=== PATIENT | male | born 1935 | race African-American/Black ===

== ENCOUNTER 2017-03-27 06:11 | Emergency (ER) | payer MEDICARE ==
[~2017-03-27] VITALS: Ht 190.5 cm; Wt 51.0 kg
[~2017-03-27 06:11] MED LIST: FS300; LEVO137T2; LISI-604; SIMVASTATIN
[2017-03-27] MEDS ORDERED: SODIUM CHLORIDE 0.9% 1,000 ML IV ONE (06:37)
[2017-03-27 06:59] LABS: BASOPHILS % 0.3 % (0.0-2.0); HEMATOCRIT. 33.5 % (42.0-52.0); HEMOGLOBIN. 11.5 g/dL (14.0-18.0); LYMPHOCYTES % 14.3 % (20.0-50.0); MEAN CORPUSCULAR HEMOGLOBIN 30.1 pg (28.0-32.0); MEAN CORPUSCULAR HGB CONC 34.2 g/dL (31.0-37.0); MEAN CORPUSCULAR VOLUME 87.9 fL (80.0-94.0); MEAN PLATELET VOLUME 7.1 fl (7.4-10.4); MONOCYTES % 9.9 % (2.0-8.0); NEUTROPHILS % 75.5 % (40.0-76.0); PLATELET 165 x1000/uL (130-400); RED BLOOD CELL COUNT 3.81 mill/uL (4.7-6.1); RED CELL DISTRIBUTION WIDTH 13.2 % (11.6-14.6); WHITE BLOOD COUNT 2.4 x1000/uL (4.5-11.0)
[2017-03-27 07:06] LABS: PROTHROMBIN TIME 10.7 sec
[2017-03-27] MEDS ORDERED: INSU3INS6 SUBCUT (07:07)
[2017-03-27] MEDS ORDERED: TAMS0.4C31 PO (07:09)
[2017-03-27] MEDS ORDERED: ASPI-1035 PO (07:09)
[2017-03-27 07:16] LABS: ALANINE AMINOTRANSFERASE 25 IU/L (13-61); ALBUMIN 3.9 g/dL (3.4-5.0); ANION GAP 18; CALCIUM 8.9 mg/dL (8.5-10.1); CARBON DIOXIDE 25 mEq/L (21-32); CHLORIDE 90 mEq/L (98-107); ETHANOL BLOOD < 10 mg/dL; INDEX HEMOLYSI 1 (1-3); INDEX ICTERIC 1 (1-4); INDEX LIPEMIC 1 (1-3); NT PRO B-TYPE NATRIURETIC PEP 123 pg/mL (5-125); T4 FREE 1.28 ng/dL (0.76-1.46); TROPONIN I < 0.02 ng/mL (0.00-0.04); UREA NITROGEN BLOOD 33 mg/dL (7-21); eGFR 39 mL/min (>60)
[2017-03-27 11:31] VITALS: BP 140/70
== END 2017-03-27 11:36 | disposition home or self-care (01) ==
LOC: ER 06:12
DX: R05 Cough (principal); R09.81 Nasal congestion; R06.02 Shortness of breath; R42 Dizziness and giddiness; R11.2 Nausea with vomiting, unspecified; R53.1 Weakness; I10 Essential (primary) hypertension; E11.9 Type 2 diabetes mellitus without complications; D64.9 Anemia, unspecified; F12.10 Cannabis abuse, uncomplicated; Z90.49 Acquired absence of other specified parts of digestive tract; Z98.890 Other specified postprocedural states; Z79.82 Long term (current) use of aspirin; Z79.4 Long term (current) use of insulin
CPT/HCPCS: 36415; 71010; 72050; 80053; 83880; 84439; 84443; 84484; 85025; 85610; 93005; 96360; 96361; 99285; G0482; J7030

== ENCOUNTER 2017-12-17 09:28 | Inpatient (IN) | payer MEDICARE, OTHER ==
[~2017-12-17] VITALS: Ht 190.5 cm; Wt 64.0 kg
[~2017-12-17 09:28] MED LIST changes: +ASPI-1159 PO; +FERR325T23; -FS300; +INSU3INS6 SUBCUT; +TAMS0.4C31 PO
[2017-12-17 11:20] LABS: BASOPHILS % 0.3 % (0.0-2.0); EOSINOPHILS % 0.1 % (0.0-5.0); HEMOGLOBIN. 12.2 g/dL (14.0-18.0); LYMPHOCYTES % 13.6 % (20.0-50.0); MEAN CORPUSCULAR HEMOGLOBIN 30.8 pg (28.0-32.0); MEAN CORPUSCULAR VOLUME 90.8 fL (80.0-94.0); MEAN PLATELET VOLUME 6.4 fl (7.4-10.4); PLATELET 200 x1000/uL (130-400); RED BLOOD CELL COUNT 3.97 mill/uL (4.7-6.1); RED CELL DISTRIBUTION WIDTH 13.2 % (11.6-14.6)
[2017-12-17 11:37] LABS: CARBON DIOXIDE 30 mEq/L (21-32); CHLORIDE 86 mEq/L (98-107); TROPONIN I < 0.02 ng/mL (0.00-0.04)
[2017-12-17 11:45] LABS: PROTHROMBIN TIME 10.8 sec (9.4-11.6)
[2017-12-17] MEDS ORDERED: ACETAMINOPHEN 325MG TABLET PO ONE (11:45)
[2017-12-17] MEDS ORDERED: METHYLPREDNISOLONE SOD SUCC 125 MG/2 ML VIAL IV STA (11:59)
[2017-12-17] MEDS ORDERED: ALBUTEROL (0.083%) 2.5MG/3ML NEB HHN STA (11:59)
[2017-12-17] MEDS ORDERED: DEXTROSE 50% WATER 50ML SYRINGE IV PRN (16:00)
[2017-12-17] MEDS ORDERED: IPRATROPIUM/ALBUTEROL 0.5-3(2.5)MG/3ML NEB INH PRN (16:00)
[2017-12-17] MEDS ORDERED: CLONIDINE 0.1MG TABLET PO PRN (16:00)
[2017-12-17] MEDS ORDERED: ONDANSETRON HCL 4MG/2ML VIAL IV PRN (16:00)
[2017-12-17] MEDS ORDERED: GUAIFENESIN 200MG/10ML SUGAR FREE UDC PO PRN (16:00)
[2017-12-17] MEDS ORDERED: DIPHENHYDRAMINE 50MG/ML VIAL IV PRN (16:00)
[2017-12-17] MEDS ORDERED: ACETAMINOPHEN 325MG TABLET PO PRN (16:00)
[2017-12-17 17:00] VITALS: BP 143/62
[2017-12-17 17:20] VITALS: BP 158/81
[2017-12-17] MEDS: BLOOD SUGAR DIAGNOSTIC STRIP TEST SCH ×2 (17:20→21:14)
[2017-12-17 17:32] LABS: HEPATITIS B SURFACE ANTIGEN NEGATIVE
[2017-12-17 18:00] LABS: HEPATITIS B CORE AB IGM NEGATIVE
[2017-12-17] MEDS ORDERED: METHYLPREDNISOLONE SOD SUCC 40 MG/ML VIAL IV SCH (18:00)
[2017-12-17 18:02] LABS: HEPATITIS A AB IGM NEGATIVE (NEGATIVE)
[2017-12-17] MEDS: INSULIN LISPRO 100 UNITS/ML SUBCUT SCH ×2 (18:46→21:14)
[2017-12-17 20:00] VITALS: BP 126/63
[2017-12-17 20:12] LABS: T4 FREE 0.4 ng/dL (0.76-1.46)
[2017-12-17] MEDS: AZITHROMYCIN 500 MG TABLET PO SCH (20:17)
[2017-12-17] MEDS: SODIUM CHLORIDE 0.9% 1,000 ML IV SCH (20:17)
[2017-12-17] MEDS: OSELTAMIVIR 30MG CAPSULE PO SCH (20:18)
[2017-12-18] VITALS: BP 135/63
[2017-12-18] MEDS: HYDROCODONE/ACETAMINOPHEN 5/325MG TABLET PO PRN ×3 (01:55→22:08)
[2017-12-18] MEDS: IPRATROPIUM/ALBUTEROL 0.5-3(2.5)MG/3ML NEB INH SCH ×4 (02:20→20:42)
[2017-12-18 04:00] VITALS: BP 112/62
[2017-12-18] MEDS: SODIUM CHLORIDE 0.9% 1,000 ML IV SCH ×2 (06:19→19:40)
[2017-12-18] MEDS: BLOOD SUGAR DIAGNOSTIC STRIP TEST SCH ×4 (06:24→21:20)
[2017-12-18 06:41] LABS: HEMATOCRIT. 27.9 % (42.0-52.0); MEAN CORPUSCULAR HEMOGLOBIN 32.4 pg (28.0-32.0); MEAN CORPUSCULAR VOLUME 90.6 fL (80.0-94.0); MEAN PLATELET VOLUME 6.4 fl (7.4-10.4); PLATELET 147 x1000/uL (130-400); RED BLOOD CELL COUNT 3.09 mill/uL (4.7-6.1); RED CELL DISTRIBUTION WIDTH 12.9 % (11.6-14.6)
[2017-12-18 06:53] LABS: CHLORIDE 93 mEq/L (98-107)
[2017-12-18 07:07] LABS: CARBON DIOXIDE 26 mEq/L (21-32); HDL CHOLESTEROL 75 mg/dL (40-59); LDL CHOLESTEROL 66 mg/dL (5-100); TROPONIN I < 0.02 ng/mL (0.00-0.04)
[2017-12-18 08:00] VITALS: BP 101/62
[2017-12-18 08:10] LABS: PLATELET ESTIMATE NORMAL
[2017-12-18] MEDS: AZITHROMYCIN 500 MG TABLET PO SCH (09:47)
[2017-12-18] MEDS: OSELTAMIVIR 30MG CAPSULE PO SCH ×2 (09:49→21:20)
[2017-12-18] MEDS: INSULIN LISPRO 100 UNITS/ML SUBCUT SCH ×4 (09:54→21:20)
[2017-12-18 12:00] VITALS: BP 155/70
[2017-12-18] MEDS ORDERED: LEVOTHYROXINE SODIUM 137MCG TABLET PO SCH (12:45)
[2017-12-18 16:00] VITALS: BP 155/71
[2017-12-18] MEDS: DOCUSATE SODIUM 250MG CAPSULE PO SCH (17:40)
[2017-12-18] MEDS: LISINOPRIL 20MG TABLET PO SCH (17:40)
[2017-12-18 20:00] VITALS: BP 124/60
[2017-12-18 21:16] LABS: CARCINO EMBRYONIC ANTIGEN 4.4 ng/ml; PROSTRATE SPECIFIC AG TOTAL 10.27 ng/mL (0.0-4.0)
[2017-12-18 21:19] LABS: FERRITIN > 1650 ng/mL (22-322)
[2017-12-19] VITALS: BP 127/70
[2017-12-19] MEDS: IPRATROPIUM/ALBUTEROL 0.5-3(2.5)MG/3ML NEB INH SCH ×4 (00:43→16:03)
[2017-12-19] MEDS: HYDROCODONE/ACETAMINOPHEN 5/325MG TABLET PO PRN ×3 (02:04→11:36)
[2017-12-19 04:00] VITALS: BP 109/56
[2017-12-19] MEDS: LEVOTHYROXINE SODIUM 137MCG TABLET PO SCH ×2 (05:59→09:12)
[2017-12-19 06:03] LABS: BASOPHILS % 0.2 % (0.0-2.0); HEMATOCRIT. 30.6 % (42.0-52.0); HEMOGLOBIN. 10.8 g/dL (14.0-18.0); MEAN CORPUSCULAR HEMOGLOBIN 32.6 pg (28.0-32.0); MEAN CORPUSCULAR VOLUME 92.3 fL (80.0-94.0); MEAN PLATELET VOLUME 6.6 fl (7.4-10.4); MONOCYTES % 8.7 % (2.0-8.0); NEUTROPHILS % 76.1 % (40.0-76.0); PLATELET 130 x1000/uL (130-400); RED BLOOD CELL COUNT 3.32 mill/uL (4.7-6.1); RED CELL DISTRIBUTION WIDTH 12.9 % (11.6-14.6)
[2017-12-19] MEDS: BLOOD SUGAR DIAGNOSTIC STRIP TEST SCH ×3 (06:23→17:20)
[2017-12-19 06:37] LABS: CARBON DIOXIDE 30 mEq/L (21-32); CHLORIDE 91 mEq/L (98-107); PHOSPHORUS 1.4 mg/dL (2.5-4.9)
[2017-12-19 08:39] VITALS: BP 156/66
[2017-12-19] MEDS: SODIUM CHLORIDE 0.9% 1,000 ML IV SCH (09:00)
[2017-12-19] MEDS: OSELTAMIVIR 30MG CAPSULE PO SCH (09:11)
[2017-12-19] MEDS: AZITHROMYCIN 500 MG TABLET PO SCH (09:13)
[2017-12-19] MEDS: LISINOPRIL 20MG TABLET PO SCH (09:13)
[2017-12-19] MEDS: INSULIN LISPRO 100 UNITS/ML SUBCUT SCH ×3 (09:17→18:05)
[2017-12-19] MEDS: DOCUSATE SODIUM 250MG CAPSULE PO SCH (09:19)
[2017-12-19] MEDS ORDERED: POTASSIUM-SODIUM PHOSPHATE POWDER PACKET PO NR ×2 (11:45→18:00)
[2017-12-19 12:35] VITALS: BP 125/58
[2017-12-19 16:28] VITALS: BP 151/70
[2017-12-19 17:51] LABS: CLARITY URINE CLEAR (CLEAR); COLOR URINE YELLOW (YELLOW); KETONES URINE NEGATIVE (NEGATIVE); LEUKOCYTE ESTERASE URINE NEGATIVE (NEGATIVE); NITRITE URINE NEGATIVE (NEGATIVE); OCCULT BLOOD URINE NEGATIVE (NEGATIVE); PH URINE 6.5 (4.5-8.0); PROTEIN URINE NEGATIVE (NEGATIVE); SPECIFIC GRAVITY URINE 1.023 (1.005-1.030); UROBILINOGEN URINE 0.2 E.U./dL (0.2-1.0)
[2017-12-19 17:52] LABS: SODIUM URINE RANDOM 35 mEq/L
[2017-12-19 18:24] VITALS: BP 128/78
[2017-12-21 13:07] LABS: IMMUNOGLOBULIN A 374 mg/dL (61-437); IMMUNOGLOBULIN G 908 mg/dL (700-1600); IMMUNOGLOBULIN M 39 mg/dL (15-143)
[2017-12-22 08:19] LABS: ALPHA FETOPROTEIN TUMOR MARKER < 0.7 ng/mL (0.0-8.3); CA 19-9 1 U/mL (0-35)
== END 2017-12-19 19:00 | disposition home or self-care (01) | DRG 720 ==
LOC: ER 09:45 → 6WST 12:16 → ENRESERV 15:56
PROVIDERS: ADMIT Internal Medicine; ATTEND Internal Medicine
DX: A41.9 Sepsis, unspecified organism (principal); J96.01 Acute respiratory failure with hypoxia; E43 Unspecified severe protein-calorie malnutrition; J11.00 Influenza due to unidentified influenza virus with unspecified type of pneumonia; D61.818 Other pancytopenia; E11.9 Type 2 diabetes mellitus without complications; E86.0 Dehydration; E87.8 Other disorders of electrolyte and fluid balance, not elsewhere classified; E03.9 Hypothyroidism, unspecified; E78.5 Hyperlipidemia, unspecified; E83.51 Hypocalcemia; E87.1 Hypo-osmolality and hyponatremia; E83.39 Other disorders of phosphorus metabolism; I10 Essential (primary) hypertension; N40.0 Benign prostatic hyperplasia without lower urinary tract symptoms; Z90.49 Acquired absence of other specified parts of digestive tract; Z82.49 Family history of ischemic heart disease and other diseases of the circulatory system; Z79.899 Other long term (current) drug therapy; Z79.82 Long term (current) use of aspirin; Z59.0 Homelessness; Z79.4 Long term (current) use of insulin; Z68.1 Body mass index [BMI] 19.9 or less, adult
CPT/HCPCS: 36415; 71045; 76700; 80048; 80053; 80061; 81001; 82105; 82378; 82533; 82728; 82746; 82784; 82962; 83036; 83605; 83735; 83880; 83935; 84100; 84153; 84300; 84439; 84443; 84481; 84484; 85025; 85044; 85384; 85610; 85651; 86300; 86301; 86705; 86709; 86803; 87040; 87077; 87086; 87186; 87340; 87804; 93005; 94640; 96374; 97163; 99285; J1815; J2920; J2930; J7030; J7611; J7620

== ENCOUNTER 2017-12-20 10:12 | Emergency (ER) | payer OTHER ==
[~2017-12-20] VITALS: Ht 190.5 cm; Wt 52.0 kg
[2017-12-20 14:43] LABS: CLARITY URINE CLEAR (CLEAR); COLOR URINE YELLOW (YELLOW); KETONES URINE NEGATIVE (NEGATIVE); LEUKOCYTE ESTERASE URINE NEGATIVE (NEGATIVE); NITRITE URINE NEGATIVE (NEGATIVE); OCCULT BLOOD URINE NEGATIVE (NEGATIVE); PH URINE 8.5 (4.5-8.0); PROTEIN URINE 1+ (NEGATIVE); SPECIFIC GRAVITY URINE 1.015 (1.005-1.030); UROBILINOGEN URINE 0.2 E.U./dL (0.2-1.0)
[2017-12-20 14:45] LABS: HEMATOCRIT. 31.8 % (42.0-52.0); MEAN CORPUSCULAR HEMOGLOBIN 30.4 pg (28.0-32.0); MEAN CORPUSCULAR VOLUME 88.1 fL (80.0-94.0); MEAN PLATELET VOLUME 6.3 fl (7.4-10.4); PLATELET 128 x1000/uL (130-400); RED BLOOD CELL COUNT 3.61 mill/uL (4.7-6.1); RED CELL DISTRIBUTION WIDTH 12.8 % (11.6-14.6)
[2017-12-20 14:54] LABS: CHLORIDE 90 mEq/L (98-107)
[2017-12-20 15:02] LABS: CARBON DIOXIDE 33 mEq/L (21-32)
[2017-12-20 17:21] LABS: PLATELET ESTIMATE DECREASED
[2017-12-20 17:49] VITALS: BP 147/78
== END 2017-12-20 17:51 | disposition home or self-care (01) ==
LOC: ER 12:26
DX: S76.011A Strain of muscle, fascia and tendon of right hip, initial encounter (principal); M16.11 Unilateral primary osteoarthritis, right hip; M54.30 Sciatica, unspecified side; I10 Essential (primary) hypertension; N40.0 Benign prostatic hyperplasia without lower urinary tract symptoms; E78.00 Pure hypercholesterolemia, unspecified; Z90.49 Acquired absence of other specified parts of digestive tract; E11.9 Type 2 diabetes mellitus without complications; Z79.4 Long term (current) use of insulin; D72.819 Decreased white blood cell count, unspecified; E87.1 Hypo-osmolality and hyponatremia; X58.XXXA Exposure to other specified factors, initial encounter; Y93.89 Activity, other specified; Y92.018 Other place in single-family (private) house as the place of occurrence of the external cause
CPT/HCPCS: 36415; 73502; 80053; 81001; 82962; 85025; 99285

== ENCOUNTER 2017-12-30 01:14 | Emergency (ER) | payer OTHER ==
[~2017-12-30] VITALS: Ht 188 cm; Wt 54.0 kg
[2017-12-30 02:20] LABS: CHLORIDE 94 mEq/L (98-107)
[2017-12-30 02:28] LABS: BASOPHILS % 3.4 % (0.0-2.0); EOSINOPHILS % 0.2 % (0.0-5.0); HEMATOCRIT. 31.1 % (42.0-52.0); HEMOGLOBIN. 10.9 g/dL (14.0-18.0); LYMPHOCYTES % 23.6 % (20.0-50.0); MEAN CORPUSCULAR HEMOGLOBIN 34.3 pg (28.0-32.0); MEAN CORPUSCULAR VOLUME 97.5 fL (80.0-94.0); MEAN PLATELET VOLUME 6.3 fl (7.4-10.4); MONOCYTES % 5.9 % (2.0-8.0); NEUTROPHILS % 66.9 % (40.0-76.0); PLATELET 300 x1000/uL (130-400); RED BLOOD CELL COUNT 3.19 mill/uL (4.7-6.1)
[2017-12-30 02:29] LABS: PROTHROMBIN TIME 10.5 sec (9.4-11.6)
[2017-12-30 05:57] VITALS: BP 150/79
== END 2017-12-30 05:59 | disposition home or self-care (01) ==
LOC: ER 01:14
DX: I10 Essential (primary) hypertension (principal); E11.9 Type 2 diabetes mellitus without complications; M79.651 Pain in right thigh; Z79.82 Long term (current) use of aspirin; Z79.4 Long term (current) use of insulin
CPT/HCPCS: 36415; 71045; 80053; 83880; 85025; 85610; 93005; 99285

== ENCOUNTER 2018-10-12 09:21 | Emergency (ER) | payer OTHER ==
[~2018-10-12] VITALS: Ht 190.5 cm; Wt 111.0 kg
[2018-10-12 09:35] VITALS: BP 175/71
[2018-10-12] MEDS ORDERED: POVIDONE-IODINE 10% TOPICAL SOLN 240ML TOP ONE (10:15)
[2018-10-12] MEDS ORDERED: BACITRACIN ZINC OINT UDPKT TOP ONE (10:15)
[2018-10-12] MEDS ORDERED: ACETAMINOPHEN 325MG TABLET PO ONE (10:30)
== END 2018-10-12 11:52 | disposition home or self-care (01) ==
LOC: ER 09:21
DX: S91.301A Unspecified open wound, right foot, initial encounter (principal); E11.40 Type 2 diabetes mellitus with diabetic neuropathy, unspecified; F12.10 Cannabis abuse, uncomplicated; I10 Essential (primary) hypertension; Z90.49 Acquired absence of other specified parts of digestive tract; Z79.4 Long term (current) use of insulin; Z79.82 Long term (current) use of aspirin; Z79.899 Other long term (current) drug therapy; Z98.890 Other specified postprocedural states; W45.8XXA Other foreign body or object entering through skin, initial encounter; Y93.89 Activity, other specified; Y92.89 Other specified places as the place of occurrence of the external cause; Y99.8 Other external cause status
CPT/HCPCS: 73630; 82962; 99284; A4246

== ENCOUNTER 2019-03-08 10:24 | Emergency (ER) | payer OTHER ==
[~2019-03-08] VITALS: Ht 190.5 cm; Wt 46.0 kg
[2019-03-08] MEDS ORDERED: IBUPROFEN 400MG TABLET PO ONE (11:30)
[2019-03-08 13:06] VITALS: BP 118/76
== END 2019-03-08 13:08 | disposition home or self-care (01) ==
LOC: ER 10:31
DX: S39.012A Strain of muscle, fascia and tendon of lower back, initial encounter (principal); S00.93XA Contusion of unspecified part of head, initial encounter; S00.81XA Abrasion of other part of head, initial encounter; E11.9 Type 2 diabetes mellitus without complications; I10 Essential (primary) hypertension; F12.10 Cannabis abuse, uncomplicated; Z90.89 Acquired absence of other organs; Z79.4 Long term (current) use of insulin; Z79.899 Other long term (current) drug therapy; Y08.89XA Assault by other specified means, initial encounter; Y93.89 Activity, other specified; Y92.89 Other specified places as the place of occurrence of the external cause; Y99.8 Other external cause status
CPT/HCPCS: 71045; 99284

== ENCOUNTER 2019-05-07 07:14 | Emergency (ER) | payer OTHER ==
[~2019-05-07] VITALS: Ht 185.4 cm; Wt 55.0 kg
[~2019-05-07 07:14] MED LIST changes: -ASPI-1159 PO; +ASPI-1393 PO
[2019-05-07 09:01] LABS: BASOPHILS % 0.7 % (0.0-2.0); EOSINOPHILS % 0.3 % (0.0-5.0); HEMATOCRIT. 30.3 % (42.0-52.0); HEMOGLOBIN. 10.4 g/dL (14.0-18.0); LYMPHOCYTES % 35.5 % (20.0-50.0); MEAN CORPUSCULAR HEMOGLOBIN 31.7 pg (28.0-32.0); MEAN CORPUSCULAR VOLUME 92.2 fL (80.0-94.0); MEAN PLATELET VOLUME 7.1 fl (7.4-10.4); NEUTROPHILS % 54.5 % (40.0-76.0); PLATELET 142 x1000/uL (130-400); RED BLOOD CELL COUNT 3.29 mill/uL (4.7-6.1)
[2019-05-07 09:07] LABS: CHLORIDE 105 mEq/L (98-107)
[2019-05-07 09:20] LABS: CLARITY URINE CLEAR (CLEAR); COLOR URINE YELLOW (YELLOW); KETONES URINE NEGATIVE (NEGATIVE); LEUKOCYTE ESTERASE URINE NEGATIVE (NEGATIVE); NITRITE URINE NEGATIVE (NEGATIVE); OCCULT BLOOD URINE NEGATIVE (NEGATIVE); PH URINE 6.5 (4.5-8.0); PROTEIN URINE NEGATIVE (NEGATIVE); SPECIFIC GRAVITY URINE 1.013 (1.005-1.030); UROBILINOGEN URINE 0.2 E.U./dL (0.2-1.0)
[2019-05-07 10:43] VITALS: BP 167/82
== END 2019-05-07 10:44 | disposition home or self-care (01) ==
LOC: ER 07:14
DX: R60.0 Localized edema (principal); E11.9 Type 2 diabetes mellitus without complications; I11.0 Hypertensive heart disease with heart failure; E03.9 Hypothyroidism, unspecified; Z90.49 Acquired absence of other specified parts of digestive tract; Z98.890 Other specified postprocedural states; Z79.4 Long term (current) use of insulin; Z79.82 Long term (current) use of aspirin
CPT/HCPCS: 36415; 71045; 93005; 99284

== ENCOUNTER 2019-05-09 16:57 | Emergency (ER) | payer OTHER ==
[~2019-05-09] VITALS: Ht 190.5 cm; Wt 42.0 kg
[2019-05-09 18:52] LABS: CLARITY URINE CLEAR (CLEAR); COLOR URINE YELLOW (YELLOW); KETONES URINE NEGATIVE (NEGATIVE); LEUKOCYTE ESTERASE URINE NEGATIVE (NEGATIVE); NITRITE URINE NEGATIVE (NEGATIVE); OCCULT BLOOD URINE TRACE (NEGATIVE); PROTEIN URINE TRACE (NEGATIVE); SPECIFIC GRAVITY URINE 1.016 (1.005-1.030); UROBILINOGEN URINE 0.2 E.U./dL (0.2-1.0)
[2019-05-09 19:13] LABS: BASOPHILS % 0.2 % (0.0-2.0); EOSINOPHILS % 0.1 % (0.0-5.0); HEMATOCRIT. 32.8 % (42.0-52.0); HEMOGLOBIN. 11.5 g/dL (14.0-18.0); LYMPHOCYTES % 24.6 % (20.0-50.0); MEAN CORPUSCULAR HEMOGLOBIN 32.9 pg (28.0-32.0); MEAN CORPUSCULAR VOLUME 93.9 fL (80.0-94.0); MEAN PLATELET VOLUME 7.1 fl (7.4-10.4); MONOCYTES % 7.9 % (2.0-8.0); NEUTROPHILS % 67.2 % (40.0-76.0); PLATELET 160 x1000/uL (130-400); RED CELL DISTRIBUTION WIDTH 13.7 % (11.6-14.6)
[2019-05-09 19:23] LABS: CHLORIDE 100 mEq/L (98-107)
[2019-05-10 01:07] VITALS: BP 135/75
== END 2019-05-10 01:09 | disposition home or self-care (01) ==
LOC: ER 16:57
DX: E11.649 Type 2 diabetes mellitus with hypoglycemia without coma (principal); R55 Syncope and collapse; I11.9 Hypertensive heart disease without heart failure; E03.9 Hypothyroidism, unspecified; Z90.89 Acquired absence of other organs; Z79.899 Other long term (current) drug therapy; Z79.4 Long term (current) use of insulin; Z79.82 Long term (current) use of aspirin
CPT/HCPCS: 36415; 71045; 82962; 83880; 84484; 93005; 99284

== ENCOUNTER 2019-10-20 07:47 | Emergency (ER) | payer OTHER ==
[~2019-10-20] VITALS: Ht 190.5 cm; Wt 54.0 kg
[2019-10-20 08:01] VITALS: BP 131/89
== END 2019-10-20 09:54 | disposition home or self-care (01) ==
LOC: ER 07:47
DX: S91.311A Laceration without foreign body, right foot, initial encounter (principal); I11.9 Hypertensive heart disease without heart failure; E11.9 Type 2 diabetes mellitus without complications; E03.9 Hypothyroidism, unspecified; Z79.4 Long term (current) use of insulin; Z79.82 Long term (current) use of aspirin; Z90.49 Acquired absence of other specified parts of digestive tract; W25.XXXA Contact with sharp glass, initial encounter; Y93.89 Activity, other specified; Y92.018 Other place in single-family (private) house as the place of occurrence of the external cause
CPT/HCPCS: 73630; 99283

== ENCOUNTER 2020-01-09 15:23 | Emergency (ER) | payer OTHER ==
[~2020-01-09] VITALS: Ht 190.5 cm; Wt 62.0 kg
[~2020-01-09 15:23] MED LIST changes: -ASPI-1393 PO; +ASPI-1497 PO
[2020-01-09 20:22] LABS: CLARITY URINE CLEAR (CLEAR); COLOR URINE YELLOW (YELLOW); KETONES URINE NEGATIVE (NEGATIVE); LEUKOCYTE ESTERASE URINE NEGATIVE (NEGATIVE); NITRITE URINE NEGATIVE (NEGATIVE); OCCULT BLOOD URINE NEGATIVE (NEGATIVE); PH URINE 8.5 (4.5-8.0); PROTEIN URINE 1+ (NEGATIVE); SPECIFIC GRAVITY URINE 1.012 (1.005-1.030); UROBILINOGEN URINE 0.2 E.U./dL (0.2-1.0)
[2020-01-09 20:25] LABS: BASOPHILS % 0.4 % (0.0-2.0); EOSINOPHILS % 0.3 % (0.0-5.0); HEMATOCRIT. 33.8 % (42.0-52.0); HEMOGLOBIN. 11.5 g/dL (14.0-18.0); LYMPHOCYTES % 30.1 % (20.0-50.0); MEAN CORPUSCULAR HEMOGLOBIN 31.8 pg (28.0-32.0); MEAN CORPUSCULAR VOLUME 93.4 fL (80.0-94.0); MEAN PLATELET VOLUME 7.5 fl (7.4-10.4); MONOCYTES % 9.5 % (2.0-8.0); NEUTROPHILS % 59.7 % (40.0-76.0); PLATELET 166 x1000/uL (130-400); RED BLOOD CELL COUNT 3.61 mill/uL (4.7-6.1); RED CELL DISTRIBUTION WIDTH 15.3 % (11.6-14.6)
[2020-01-09 20:32] LABS: CHLORIDE 98 mEq/L (98-107)
[2020-01-09 23:32] VITALS: BP 151/67
== END 2020-01-10 23:32 | disposition home or self-care (01) ==
LOC: ER 15:23
DX: R60.0 Localized edema (principal); I10 Essential (primary) hypertension; E03.9 Hypothyroidism, unspecified; Z79.82 Long term (current) use of aspirin
CPT/HCPCS: 36415; 80048; 81003; 85025; 93970; 99284

== ENCOUNTER 2020-07-06 16:01 | Inpatient (IN) | payer OTHER ==
[~2020-07-06] VITALS: Ht 190.5 cm; Wt 62.6 kg
[2020-07-06] MEDS ORDERED: HYDR12.54 PO (16:22)
[2020-07-06] MEDS ORDERED: FINA5TAB11 PO (16:22)
[2020-07-06 17:30] LABS: BASOPHILS % 0.2 % (0.0-2.0); EOSINOPHILS % 0.7 % (0.0-5.0); HEMATOCRIT. 25.9 % (42.0-52.0); HEMOGLOBIN. 8.6 g/dL (14.0-18.0); LYMPHOCYTES % 20.1 % (20.0-50.0); MEAN CORPUSCULAR HEMOGLOBIN 29.2 pg (28.0-32.0); MEAN CORPUSCULAR VOLUME 87.9 fL (80.0-94.0); MEAN PLATELET VOLUME 7.3 fl (7.4-10.4); MONOCYTES % 14.5 % (2.0-8.0); NEUTROPHILS % 64.5 % (40.0-76.0); PLATELET 140 x1000/uL (130-400); RED BLOOD CELL COUNT 2.95 mill/uL (4.7-6.1); RED CELL DISTRIBUTION WIDTH 14.3 % (11.6-14.6)
[2020-07-06 17:38] LABS: CHLORIDE 110 mEq/L (98-107)
[2020-07-06] MEDS ORDERED: FUROSEMIDE 20MG/2ML VIAL IVP ONE (18:45)
[2020-07-06 18:59] LABS: PROTHROMBIN TIME 10.1 sec (9.6-11.0)
[2020-07-06 20:00] VITALS: BP 156/62
[2020-07-07] VITALS (7 sets, daily range): BP systolic 122–159; BP diastolic 59–79
[2020-07-07] MEDS ORDERED: ACETAMINOPHEN 325MG TABLET PO PRN (00:45)
[2020-07-07] MEDS ORDERED: IPRATROPIUM/ALBUTEROL 0.5-3(2.5)MG/3ML NEB HHN PRN (00:45)
[2020-07-07] MEDS ORDERED: DEXTROSE 50% WATER 50ML SYRINGE IV PRN ×4 (02:15)
[2020-07-07 02:47] LABS: BG BASE EXCESS -2.5 mmol/L (-2.0-2.0); BG CARBOXYHEMOGLOBIN 0.3 % (0.5-1.5); BG DEOXYHEMOGLOBIN 2.8 % (0.0-5.0); BG FRACTION INSPIRED OXYGEN 21; BG HCO3 ACT 21.1 mmol/L (22.0-26.0); BG METHEMOGLOBIN 0.3 % (0.0-1.5); BG OXYGEN SATURATION 97.2 % (92.0-98.5); BG OXYHEMOGLOBIN 96.6 % (94.0-97.0); BG PCO2 31.5 mmHg (35.0-45.0); BG PH 7.444 (7.350-7.450); BG PO2 98.8 mmHg (75.0-100.0); BG SAMPLE SITE RIGHT RADIAL; BG TOTAL HEMOGLOBIN 8.8 g/dL (12.0-18.0); BG VENT MODE ROOM AIR
[2020-07-07 04:07] LABS: CLARITY URINE CLEAR (CLEAR); COLOR URINE YELLOW (YELLOW); KETONES URINE NEGATIVE (NEGATIVE); LEUKOCYTE ESTERASE URINE NEGATIVE (NEGATIVE); NITRITE URINE NEGATIVE (NEGATIVE); OCCULT BLOOD URINE NEGATIVE (NEGATIVE); PH URINE 7.5 (4.5-8.0); PROTEIN URINE NEGATIVE (NEGATIVE); SPECIFIC GRAVITY URINE 1.011 (1.005-1.030); UROBILINOGEN URINE 0.2 E.U./dL (0.2-1.0)
[2020-07-07] MEDS: INSULIN LISPRO 100 UNITS/ML SUBCUT SCH ×4 (06:00→22:53)
[2020-07-07] MEDS: BLOOD SUGAR DIAGNOSTIC STRIP TEST SCH ×4 (06:00→21:00)
[2020-07-07 07:08] LABS: BASOPHILS % 0.4 % (0.0-2.0); EOSINOPHILS % 0.9 % (0.0-5.0); HEMATOCRIT. 24.9 % (42.0-52.0); HEMOGLOBIN. 8.3 g/dL (14.0-18.0); MEAN CORPUSCULAR HEMOGLOBIN 29.2 pg (28.0-32.0); MEAN CORPUSCULAR VOLUME 87.3 fL (80.0-94.0); MEAN PLATELET VOLUME 7.5 fl (7.4-10.4); MONOCYTES % 14.8 % (2.0-8.0); NEUTROPHILS % 62.9 % (40.0-76.0); PLATELET 132 x1000/uL (130-400); RED BLOOD CELL COUNT 2.85 mill/uL (4.7-6.1); RED CELL DISTRIBUTION WIDTH 14.3 % (11.6-14.6)
[2020-07-07 07:14] LABS: CHLORIDE 105 mEq/L (98-107)
[2020-07-07] MEDS ORDERED: BLOOD SUGAR DIAGNOSTIC STRIP TEST SCH ×2 (07:20)
[2020-07-07] MEDS ORDERED: LEVOTHYROXINE SODIUM 137MCG TABLET PO SCH (07:20)
[2020-07-07] MEDS ORDERED: INSULIN LISPRO 100 UNITS/ML SUBCUT SCH (07:50)
[2020-07-07] MEDS: TAMSULOSIN HCL 0.4MG SR CAPSULE PO SCH (08:43)
[2020-07-07] MEDS: FINASTERIDE 5MG TABLET PO SCH (08:43)
[2020-07-07] MEDS ORDERED: ENOXAPARIN 40MG/0.4ML SYR SUBCUT SCH (09:00)
[2020-07-07] MEDS ORDERED: LEVOFLOXACIN 500MG TABLET PO SCH (11:00)
[2020-07-07 12:53] LABS: CANNABINOID URINE SCREEN NEGATIVE (NEGATIVE); METHADONE URINE SCREEN NEGATIVE (NEGATIVE); OPIATES URINE SCREEN NEGATIVE (NEGATIVE)
[2020-07-07 12:54] LABS: *AMPHETAMINES SCREEN URINE NEGATIVE (NEGATIVE); *BARBITURATES SCREEN URINE NEGATIVE (NEGATIVE); *BENZODIAZEPINES SCREEN URINE NEGATIVE (NEGATIVE); *COCAINE SCREEN URINE NEGATIVE (NEGATIVE); PHENCYCLIDINE URINE SCREEN NEGATIVE (NEGATIVE)
[2020-07-07] MEDS: PANTOPRAZOLE SODIUM 40 MG/VIAL IV SCH (13:56)
[2020-07-07] MEDS ORDERED: LORAZEPAM 2MG/ML CPJ IV PRN (15:30)
[2020-07-07] MEDS ORDERED: DIPHENHYDRAMINE 50MG/ML VIAL IV PRN (15:30)
[2020-07-07 16:19] LABS: HEMOGLOBIN 8.4 g/dL (14.0-18.0)
[2020-07-07 16:37] LABS: T4 FREE 1.72 ng/dL (0.76-1.46)
[2020-07-07 16:55] LABS: PROSTRATE SPECIFIC AG TOTAL 4.2 ng/mL (0.0-4.0)
[2020-07-07] MEDS: DOCUSATE SODIUM SUGAR FREE 100MG/10ML UDC NG SCH (17:34)
[2020-07-07] MEDS ORDERED: DEXT 5%/0.45% NACL 1000ML 1,000 ML IV SCH (18:15)
[2020-07-07] MEDS: CALCIUM CARBONATE 500MG TABLET CHEW PO SCH (18:46)
[2020-07-07] MEDS: ATORVASTATIN CALCIUM 40MG TABLET PO SCH (22:15)
[2020-07-08 00:50] VITALS: BP 156/62
[2020-07-08 04:00] VITALS: BP 130/62
[2020-07-08] MEDS: HYDROCODONE/ACETAMINOPHEN 5/325MG TABLET PO PRN ×2 (05:49→23:26)
[2020-07-08 07:00] LABS: CHLORIDE 106 mEq/L (98-107)
[2020-07-08 07:02] LABS: HEMATOCRIT 27.6 % (42.0-52.0); HEMOGLOBIN 9.2 g/dL (14.0-18.0); MEAN CORPUSCULAR HEMOGLOBIN 28.8 pg (28.0-32.0); MEAN CORPUSCULAR VOLUME 86.6 fL (80.0-94.0); PLATELET 146 x1000/uL (130-400); RED BLOOD CELL COUNT 3.19 mill/uL (4.7-6.1)
[2020-07-08] MEDS: BLOOD SUGAR DIAGNOSTIC STRIP TEST SCH ×4 (07:20→21:00)
[2020-07-08] MEDS: INSULIN LISPRO 100 UNITS/ML SUBCUT SCH ×4 (07:50→21:00)
[2020-07-08] MEDS ORDERED: CALCIUM CARBONATE 500MG TABLET CHEW PO SCH (07:50)
[2020-07-08 08:48] VITALS: BP 128/65
[2020-07-08] MEDS: TAMSULOSIN HCL 0.4MG SR CAPSULE PO SCH (09:19)
[2020-07-08] MEDS: CALCIUM CARBONATE 500MG TABLET CHEW PO SCH ×3 (09:19→18:10)
[2020-07-08] MEDS: FERROUS SULFATE 325MG TABLET PO SCH ×3 (09:19→18:10)
[2020-07-08] MEDS: DOCUSATE SODIUM SUGAR FREE 100MG/10ML UDC NG SCH (09:31)
[2020-07-08] MEDS: PANTOPRAZOLE SODIUM 40 MG/VIAL IV SCH (09:31)
[2020-07-08] MEDS: FINASTERIDE 5MG TABLET PO SCH (09:31)
[2020-07-08 12:01] VITALS: BP 133/61
[2020-07-08] MEDS ORDERED: LACTULOSE 20G/30ML UDC PO NR (12:30)
[2020-07-08] MEDS ORDERED: DOCUSATE SODIUM SUGAR FREE 100MG/10ML UDC NG NR (12:30)
[2020-07-08 16:00] VITALS: BP 144/69
[2020-07-08 20:45] VITALS: BP 100/61
[2020-07-08] MEDS: ATORVASTATIN CALCIUM 40MG TABLET PO SCH (21:00)
[2020-07-09 00:42] VITALS: BP 153/71
[2020-07-09 04:00] VITALS: BP 114/65
[2020-07-09] MEDS: HYDROCODONE/ACETAMINOPHEN 5/325MG TABLET PO PRN ×3 (05:25→17:45)
[2020-07-09] MEDS: BLOOD SUGAR DIAGNOSTIC STRIP TEST SCH ×4 (06:42→20:16)
[2020-07-09] MEDS: INSULIN LISPRO 100 UNITS/ML SUBCUT SCH ×4 (07:50→20:16)
[2020-07-09 08:00] VITALS: BP 145/71
[2020-07-09] MEDS: TAMSULOSIN HCL 0.4MG SR CAPSULE PO SCH (10:00)
[2020-07-09] MEDS: DOCUSATE SODIUM SUGAR FREE 100MG/10ML UDC NG SCH (10:01)
[2020-07-09] MEDS: FINASTERIDE 5MG TABLET PO SCH (10:01)
[2020-07-09] MEDS: FERROUS SULFATE 325MG TABLET PO SCH ×3 (10:01→17:45)
[2020-07-09] MEDS: CALCIUM CARBONATE 500MG TABLET CHEW PO SCH ×3 (10:02→17:44)
[2020-07-09] MEDS: PANTOPRAZOLE SODIUM 40 MG/VIAL IV SCH (10:02)
[2020-07-09 12:00] VITALS: BP 116/54
[2020-07-09 16:00] VITALS: BP 114/79
[2020-07-09 20:34] VITALS: BP 126/57
[2020-07-09] MEDS: ATORVASTATIN CALCIUM 40MG TABLET PO SCH (20:42)
[2020-07-09] MEDS ORDERED: LEVO200T8 PO (20:52)
[2020-07-09] MEDS ORDERED: MEGE40TA7 PO (20:52)
[2020-07-09] MEDS ORDERED: LISI40TA4 PO (20:52)
[2020-07-09] MEDS: MORPHINE SULFATE 2 MG/ML CPJ (NOT FOR IM USE) IV PRN (22:16)
[2020-07-10 00:38] VITALS: BP 142/58
[2020-07-10 04:00] VITALS: BP 153/62
[2020-07-10] MEDS: MORPHINE SULFATE 2 MG/ML CPJ (NOT FOR IM USE) IV PRN ×2 (04:59→13:32)
[2020-07-10] MEDS: BLOOD SUGAR DIAGNOSTIC STRIP TEST SCH ×4 (06:22→21:39)
[2020-07-10 08:00] VITALS: BP 131/60
[2020-07-10] MEDS: DOCUSATE SODIUM SUGAR FREE 100MG/10ML UDC NG SCH (09:00)
[2020-07-10] MEDS: PANTOPRAZOLE SODIUM 40 MG/VIAL IV SCH (09:38)
[2020-07-10] MEDS: CALCIUM CARBONATE 500MG TABLET CHEW PO SCH ×3 (09:38→17:43)
[2020-07-10] MEDS: TAMSULOSIN HCL 0.4MG SR CAPSULE PO SCH (09:39)
[2020-07-10] MEDS: FINASTERIDE 5MG TABLET PO SCH (09:39)
[2020-07-10] MEDS: FERROUS SULFATE 325MG TABLET PO SCH ×3 (09:39→17:44)
[2020-07-10] MEDS: INSULIN LISPRO 100 UNITS/ML SUBCUT SCH ×4 (09:47→21:39)
[2020-07-10 12:00] VITALS: BP 134/61
[2020-07-10 16:00] VITALS: BP 136/60
[2020-07-10 20:00] VITALS: BP 118/49
[2020-07-10] MEDS: ATORVASTATIN CALCIUM 40MG TABLET PO SCH (21:25)
[2020-07-11 00:02] VITALS: BP 115/50
[2020-07-11] MEDS: HYDROCODONE/ACETAMINOPHEN 5/325MG TABLET PO PRN (01:32)
[2020-07-11 04:00] VITALS: BP 118/52
[2020-07-11] MEDS: BLOOD SUGAR DIAGNOSTIC STRIP TEST SCH ×2 (07:34→12:21)
[2020-07-11 08:00] VITALS: BP 124/70
[2020-07-11] MEDS: INSULIN LISPRO 100 UNITS/ML SUBCUT SCH ×2 (08:03→12:25)
[2020-07-11] MEDS: CALCIUM CARBONATE 500MG TABLET CHEW PO SCH ×2 (08:04→12:24)
[2020-07-11] MEDS: FERROUS SULFATE 325MG TABLET PO SCH ×2 (08:04→12:24)
[2020-07-11] MEDS: FINASTERIDE 5MG TABLET PO SCH (08:38)
[2020-07-11] MEDS: PANTOPRAZOLE SODIUM 40 MG/VIAL IV SCH (08:38)
[2020-07-11] MEDS: DOCUSATE SODIUM SUGAR FREE 100MG/10ML UDC NG SCH (08:38)
[2020-07-11] MEDS: TAMSULOSIN HCL 0.4MG SR CAPSULE PO SCH (08:38)
[2020-07-11 09:50] VITALS: BP 124/70
[2020-07-11 09:53] VITALS: BP 124/70
[2020-07-11] MEDS ORDERED: ACETAMINOPHEN 325MG TABLET PO PRN (11:45)
[2020-07-11 12:00] VITALS: BP 138/69
== END 2020-07-11 14:25 | DRG 812 ==
LOC: ER 16:01 → 6WST 19:13 → ENRESERV 20:13 → 6WST 23:00
PROVIDERS: ADMIT Internal Medicine; ATTEND Internal Medicine
DX: D64.9 Anemia, unspecified (principal); E44.0 Moderate protein-calorie malnutrition; E11.621 Type 2 diabetes mellitus with foot ulcer; E11.649 Type 2 diabetes mellitus with hypoglycemia without coma; E03.9 Hypothyroidism, unspecified; D72.819 Decreased white blood cell count, unspecified; E78.5 Hyperlipidemia, unspecified; N40.0 Benign prostatic hyperplasia without lower urinary tract symptoms; K59.00 Constipation, unspecified; M79.89 Other specified soft tissue disorders; R94.4 Abnormal results of kidney function studies; I10 Essential (primary) hypertension; Z20.828 Contact with and (suspected) exposure to other viral communicable diseases
CPT/HCPCS: 36415; 36600; 71045; 74176; 80048; 80053; 80305; 81003; 82270; 82375; 82728; 82805; 82962; 83036; 83540; 83550; 83880; 84153; 84439; 84443; 84481; 85014; 85018; 85025; 85027; 85044; 86850; 86900; 87635; 93005; 93306; 93923; 93970; 97162; 97166; 99285; C9113; J1650; J1815; J1940; J2270; G0103

== ENCOUNTER 2020-08-21 09:29 | Inpatient (IN) | payer OTHER ==
[~2020-08-21] VITALS: Ht 182.9 cm; Wt 72.6 kg
[~2020-08-21 09:29] MED LIST changes: +FINA5TAB11 PO; +HYDR12.54 PO; -LEVO137T2; +LEVO200T8 PO; -LISI-604; +LISI40TA4 PO; +MEGE40TA7 PO
[2020-08-21 10:17] LABS: BASOPHILS % 0.3 % (0.0-2.0); EOSINOPHILS % 0.3 % (0.0-5.0); HEMATOCRIT. 29.6 % (42.0-52.0); HEMOGLOBIN. 9.9 g/dL (14.0-18.0); LYMPHOCYTES % 15.5 % (20.0-50.0); MEAN CORPUSCULAR HEMOGLOBIN 29.4 pg (28.0-32.0); MEAN CORPUSCULAR VOLUME 88.3 fL (80.0-94.0); MONOCYTES % 7.3 % (2.0-8.0); NEUTROPHILS % 76.6 % (40.0-76.0); PLATELET 168 x1000/uL (130-400); RED BLOOD CELL COUNT 3.36 mill/uL (4.7-6.1); RED CELL DISTRIBUTION WIDTH 15.8 % (11.6-14.6)
[2020-08-21 10:23] LABS: CHLORIDE 107 mEq/L (98-107)
[2020-08-21] MEDS ORDERED: DEXTROSE 50% WATER 50ML SYRINGE IV ONE ×2 (10:45→12:00)
[2020-08-21] MEDS ORDERED: ACETAMINOPHEN 650MG SUPP PR PRN (16:15)
[2020-08-21] MEDS ORDERED: ACETAMINOPHEN 325MG TABLET PO PRN (16:15)
[2020-08-21] MEDS ORDERED: CLONIDINE 0.1MG TABLET PO PRN (16:15)
[2020-08-21] MEDS ORDERED: GUAIFENESIN 200MG/10ML SUGAR FREE UDC PO PRN (16:15)
[2020-08-21] MEDS ORDERED: IPRATROPIUM/ALBUTEROL 0.5-3(2.5)MG/3ML NEB NEB PRN (16:15)
[2020-08-21] MEDS ORDERED: HYDROCODONE/ACETAMINOPHEN 5/325MG TABLET PO PRN (16:15)
[2020-08-21] MEDS ORDERED: MAGNESIUM/ALUMINUM HYDROXIDE/SIMETHICONE 30ML UDC PO PRN (16:15)
[2020-08-21] MEDS ORDERED: ACETAMINOPHEN 650MG/20.3ML UDC GT PRN (16:15)
[2020-08-21] MEDS ORDERED: ONDANSETRON HCL 4MG/2ML INJ IV PRN (16:15)
[2020-08-21] MEDS ORDERED: NA PHOS,M-B/NA PHOS,DI-BA ENEMA 118ML PR PRN (16:15)
[2020-08-21] MEDS ORDERED: LORAZEPAM 0.5MG TABLET PO PRN (16:15)
[2020-08-21] MEDS ORDERED: DOCUSATE SODIUM 100MG CAPSULE PO PRN (16:15)
[2020-08-21] MEDS ORDERED: DIPHENHYDRAMINE 50MG/ML VIAL IV PRN (16:15)
[2020-08-21] MEDS: BLOOD SUGAR DIAGNOSTIC STRIP TEST SCH ×2 (17:43→21:00)
[2020-08-21] MEDS: DEXT 5%/0.45% NACL 1000ML 1,000 ML IV SCH (18:02)
[2020-08-21] MEDS: AMLODIPINE 5MG TABLET PO SCH (18:03)
[2020-08-21] MEDS: LOSARTAN POTASSIUM 25 MG TABLET PO SCH (18:03)
[2020-08-21 23:19] VITALS: BP 136/64
[2020-08-21 23:35] LABS: CREATINE KINASE MB FRACTION 6.6 ng/mL (0.5-3.6)
[2020-08-21] MEDS: FAMOTIDINE 20MG TABLET PO SCH (23:38)
[2020-08-21] MEDS: DEXTROSE 50% WATER 50ML SYRINGE IV PRN (23:38)
[2020-08-22] VITALS: BP 131/65
[2020-08-22] MEDS: BLOOD SUGAR DIAGNOSTIC STRIP TEST SCH ×6 (01:00→21:03)
[2020-08-22 02:56] LABS: CLARITY URINE CLEAR (CLEAR); COLOR URINE YELLOW (YELLOW); KETONES URINE NEGATIVE (NEGATIVE); LEUKOCYTE ESTERASE URINE NEGATIVE (NEGATIVE); NITRITE URINE NEGATIVE (NEGATIVE); OCCULT BLOOD URINE NEGATIVE (NEGATIVE); PH URINE 7.5 (4.5-8.0); PROTEIN URINE NEGATIVE (NEGATIVE); SPECIFIC GRAVITY URINE 1.014 (1.005-1.030); UROBILINOGEN URINE 0.2 E.U./dL (0.2-1.0)
[2020-08-22 04:00] VITALS: BP 103/51
[2020-08-22] MEDS: DEXT 5%/0.45% NACL 1000ML 1,000 ML IV SCH ×2 (05:02→22:16)
[2020-08-22 07:43] LABS: CHLORIDE 106 mEq/L (98-107)
[2020-08-22 07:46] LABS: BASOPHILS % 0.5 % (0.0-2.0); EOSINOPHILS % 0.9 % (0.0-5.0); HEMATOCRIT. 27.2 % (42.0-52.0); HEMOGLOBIN. 9.2 g/dL (14.0-18.0); LYMPHOCYTES % 21.7 % (20.0-50.0); MEAN CORPUSCULAR HEMOGLOBIN 29.5 pg (28.0-32.0); MEAN CORPUSCULAR VOLUME 87.7 fL (80.0-94.0); MEAN PLATELET VOLUME 7.4 fl (7.4-10.4); MONOCYTES % 8.9 % (2.0-8.0); PLATELET 154 x1000/uL (130-400); RED BLOOD CELL COUNT 3.11 mill/uL (4.7-6.1); RED CELL DISTRIBUTION WIDTH 15.3 % (11.6-14.6)
[2020-08-22 07:51] LABS: CREATINE KINASE MB FRACTION 5.7 ng/mL (0.5-3.6)
[2020-08-22 07:52] LABS: LDL CHOLESTEROL 90 mg/dL (5-100)
[2020-08-22 07:54] LABS: HDL CHOLESTEROL 94 mg/dL (40-59)
[2020-08-22 08:00] VITALS: BP 110/50
[2020-08-22] MEDS: DEXTROSE 50% WATER 50ML SYRINGE IV PRN (08:14)
[2020-08-22 08:28] LABS: CREATINE KINASE 7895 IU/L (39-308)
[2020-08-22] MEDS: AMLODIPINE 5MG TABLET PO SCH (08:32)
[2020-08-22] MEDS: LOSARTAN POTASSIUM 25 MG TABLET PO SCH (08:32)
[2020-08-22] MEDS: LEVOTHYROXINE SODIUM 200MCG TABLET PO SCH (11:47)
[2020-08-22] MEDS: TAMSULOSIN HCL 0.4MG SR CAPSULE PO SCH (11:47)
[2020-08-22 12:00] VITALS: BP 134/54
[2020-08-22] MEDS: CEFTRIAXONE 1,000 MG in DEXTROSE 5% WATER 50 ML IV SCH (13:08)
[2020-08-22] MEDS: MEGESTROL ACETATE 40MG TABLET PO SCH (13:08)
[2020-08-22 16:00] VITALS: BP 116/61
[2020-08-22 16:31] LABS: CREATINE KINASE MB FRACTION 4.9 ng/mL (0.5-3.6)
[2020-08-22] MEDS: FERROUS SULFATE 325MG TABLET PO SCH (17:13)
[2020-08-22 20:00] VITALS: BP 143/52
[2020-08-22] MEDS: FAMOTIDINE 20MG TABLET PO SCH (21:52)
[2020-08-23] VITALS: BP 105/52
[2020-08-23] MEDS: BLOOD SUGAR DIAGNOSTIC STRIP TEST SCH ×6 (01:10→21:00)
[2020-08-23 04:00] VITALS: BP 129/54
[2020-08-23] MEDS: LEVOTHYROXINE SODIUM 200MCG TABLET PO SCH (06:32)
[2020-08-23 06:36] LABS: HEMATOCRIT 23.5 % (42.0-52.0); HEMOGLOBIN 7.9 g/dL (14.0-18.0); MEAN CORPUSCULAR HEMOGLOBIN 29.7 pg (28.0-32.0); MEAN CORPUSCULAR VOLUME 88.4 fL (80.0-94.0); PLATELET 152 x1000/uL (130-400); RED BLOOD CELL COUNT 2.66 mill/uL (4.7-6.1); RED CELL DISTRIBUTION WIDTH 15.3 % (11.6-14.6)
[2020-08-23 06:43] LABS: CHLORIDE 105 mEq/L (98-107)
[2020-08-23 07:04] LABS: HAPTOGLOBIN 176 mg/dL (30-200)
[2020-08-23 08:00] VITALS: BP 115/52
[2020-08-23] MEDS: AMLODIPINE 5MG TABLET PO SCH (08:24)
[2020-08-23] MEDS: DEXT 5%/0.45% NACL 1000ML 1,000 ML IV SCH (08:24)
[2020-08-23] MEDS: LOSARTAN POTASSIUM 25 MG TABLET PO SCH (08:24)
[2020-08-23] MEDS: ASPIRIN 81MG EC TABLET PO SCH (08:25)
[2020-08-23] MEDS: MEGESTROL ACETATE 40MG TABLET PO SCH (08:25)
[2020-08-23] MEDS: FERROUS SULFATE 325MG TABLET PO SCH ×2 (08:25→17:37)
[2020-08-23] MEDS: TAMSULOSIN HCL 0.4MG SR CAPSULE PO SCH (08:25)
[2020-08-23] MEDS: FINASTERIDE 5MG TABLET PO SCH (08:33)
[2020-08-23 12:00] VITALS: BP 115/50
[2020-08-23] MEDS: CEFTRIAXONE 1,000 MG in DEXTROSE 5% WATER 50 ML IV SCH (13:41)
[2020-08-23] MEDS ORDERED: AMLO5TAB4 MT (14:22)
[2020-08-23 15:48] LABS: HEMATOCRIT 25.6 % (42.0-52.0); HEMOGLOBIN 8.6 g/dL (14.0-18.0)
[2020-08-23 16:00] VITALS: BP 132/63
[2020-08-23 20:00] VITALS: BP 102/54
[2020-08-23] MEDS: FAMOTIDINE 20MG TABLET PO SCH (21:18)
[2020-08-24] VITALS: BP 98/52
[2020-08-24] MEDS: BLOOD SUGAR DIAGNOSTIC STRIP TEST SCH ×5 (01:08→16:51)
[2020-08-24 04:00] VITALS: BP 105/51
[2020-08-24] MEDS: LEVOTHYROXINE SODIUM 200MCG TABLET PO SCH (05:52)
[2020-08-24 07:45] VITALS: BP 115/80
[2020-08-24] MEDS: FERROUS SULFATE 325MG TABLET PO SCH ×2 (09:30→16:50)
[2020-08-24] MEDS: MEGESTROL ACETATE 40MG TABLET PO SCH (09:30)
[2020-08-24] MEDS: AMLODIPINE 5MG TABLET PO SCH (09:30)
[2020-08-24] MEDS: LOSARTAN POTASSIUM 25 MG TABLET PO SCH (09:30)
[2020-08-24] MEDS: TAMSULOSIN HCL 0.4MG SR CAPSULE PO SCH (09:30)
[2020-08-24] MEDS: ASPIRIN 81MG EC TABLET PO SCH (09:30)
[2020-08-24] MEDS: FINASTERIDE 5MG TABLET PO SCH (09:30)
[2020-08-24 10:43] VITALS: BP_SYST 115; BP_SYST 120; BP_DIAS 60
[2020-08-24 12:00] VITALS: BP 120/60
[2020-08-24] MEDS: CEFTRIAXONE 1,000 MG in DEXTROSE 5% WATER 50 ML IV SCH (13:00)
[2020-08-24 13:06] LABS: KAPPA LT CHAINS FREE SERUM 25.3 mg/L (3.3-19.4); KAPPA/LAMBDA RATIO 0.9 (0.26-1.65); LAMBDA LT CHAINS FREE SERUM 28.2 mg/L (5.7-26.3)
[2020-08-24 16:00] VITALS: BP 106/47
== END 2020-08-24 16:50 | disposition home health service (06) | DRG 637 ==
LOC: ER 09:29 → 5WST 12:00 → ENRESERV 18:56
PROVIDERS: ADMIT Internal Medicine; ATTEND Internal Medicine
DX: E11.649 Type 2 diabetes mellitus with hypoglycemia without coma (principal); G93.41 Metabolic encephalopathy; N28.9 Disorder of kidney and ureter, unspecified; E03.9 Hypothyroidism, unspecified; D64.9 Anemia, unspecified; L97.509 Non-pressure chronic ulcer of other part of unspecified foot with unspecified severity; Z79.82 Long term (current) use of aspirin; I10 Essential (primary) hypertension; E11.621 Type 2 diabetes mellitus with foot ulcer; N28.1 Cyst of kidney, acquired; E78.00 Pure hypercholesterolemia, unspecified; I48.91 Unspecified atrial fibrillation; N40.0 Benign prostatic hyperplasia without lower urinary tract symptoms; W18.30XA Fall on same level, unspecified, initial encounter; Y93.89 Activity, other specified; Y99.8 Other external cause status; Z90.49 Acquired absence of other specified parts of digestive tract; Y92.009 Unspecified place in unspecified non-institutional (private) residence as the place of occurrence of the external cause; Z79.899 Other long term (current) drug therapy
CPT/HCPCS: 36415; 71045; 74176; 76700; 80053; 80061; 80076; 81003; 82550; 82553; 82784; 82962; 83010; 83036; 83615; 83880; 83883; 84153; 84439; 84443; 84484; 85014; 85018; 85025; 85027; 86334; 93005; 97116; 97162; 97166; 97530; 97535; 99285; J0696; J7060; G0103

== ENCOUNTER 2020-08-30 11:14 | Inpatient (IN) | payer OTHER ==
[~2020-08-30] VITALS: Ht 188 cm; Wt 73.5 kg
[~2020-08-30 11:14] MED LIST changes: +AMLO5TAB4 MT
[2020-08-30] MEDS ORDERED: SODIUM CHLORIDE 0.9% 1,000 ML IV ONE (12:00)
[2020-08-30 12:07] LABS: BASOPHILS % 0.3 % (0.0-2.0); EOSINOPHILS % 1.4 % (0.0-5.0); HEMATOCRIT. 25.7 % (42.0-52.0); HEMOGLOBIN. 8.5 g/dL (14.0-18.0); LYMPHOCYTES % 23.2 % (20.0-50.0); MEAN CORPUSCULAR HEMOGLOBIN 29.1 pg (28.0-32.0); MEAN PLATELET VOLUME 7.1 fl (7.4-10.4); MONOCYTES % 6.8 % (2.0-8.0); NEUTROPHILS % 68.3 % (40.0-76.0); PLATELET 169 x1000/uL (130-400); RED BLOOD CELL COUNT 2.92 mill/uL (4.7-6.1); RED CELL DISTRIBUTION WIDTH 15.9 % (11.6-14.6)
[2020-08-30 12:10] LABS: CHLORIDE 105 mEq/L (98-107)
[2020-08-30] MEDS ORDERED: MAGNESIUM/ALUMINUM HYDROXIDE/SIMETHICONE 30ML UDC PO STA (12:13)
[2020-08-30 12:17] LABS: BETA HYDROXYBUTYRATE 0.1 mMol/L (0.0-0.3)
[2020-08-30 12:51] LABS: BG BASE EXCESS -3.1 mmol/L (-2.0-2.0); BG CARBOXYHEMOGLOBIN 0.3 % (0.5-1.5); BG DEOXYHEMOGLOBIN 2.2 % (0.0-5.0); BG FRACTION INSPIRED OXYGEN 21; BG HCO3 ACT 21.3 mmol/L (22.0-26.0); BG METHEMOGLOBIN 0.2 % (0.0-1.5); BG OXYGEN SATURATION 97.8 % (92.0-98.5); BG OXYHEMOGLOBIN 97.3 % (94.0-97.0); BG PCO2 35.5 mmHg (35.0-45.0); BG PH 7.397 (7.350-7.450); BG PO2 108.7 mmHg (75.0-100.0); BG SAMPLE SITE RIGHT BRACHIAL; BG VENT MODE ROOM AIR
[2020-08-30] MEDS ORDERED: DEXTROSE 50% WATER 50ML SYRINGE IV PRN ×2 (14:00→15:15)
[2020-08-30] MEDS ORDERED: INSULIN LISPRO 100 UNITS/ML SUBCUT SCH ×2 (14:15→18:20)
[2020-08-30 14:59] LABS: CLARITY URINE CLEAR (CLEAR); COLOR URINE YELLOW (YELLOW); KETONES URINE NEGATIVE (NEGATIVE); LEUKOCYTE ESTERASE URINE NEGATIVE (NEGATIVE); NITRITE URINE NEGATIVE (NEGATIVE); OCCULT BLOOD URINE NEGATIVE (NEGATIVE); PH URINE 6.5 (4.5-8.0); PROTEIN URINE NEGATIVE (NEGATIVE); SPECIFIC GRAVITY URINE 1.021 (1.005-1.030)
[2020-08-30] MEDS ORDERED: GUAIFENESIN 200MG/10ML SUGAR FREE UDC PO PRN ×2 (15:15→16:30)
[2020-08-30] MEDS ORDERED: DOCUSATE SODIUM 100MG CAPSULE PO PRN (15:15)
[2020-08-30] MEDS ORDERED: ACETAMINOPHEN 650MG SUPP PR PRN (15:15)
[2020-08-30] MEDS ORDERED: MAGNESIUM/ALUMINUM HYDROXIDE/SIMETHICONE 30ML UDC PO PRN (15:15)
[2020-08-30] MEDS ORDERED: ACETAMINOPHEN 325MG TABLET PO PRN ×2 (15:15→16:30)
[2020-08-30] MEDS ORDERED: CLONIDINE 0.1MG TABLET PO PRN ×2 (15:15→16:30)
[2020-08-30] MEDS ORDERED: ONDANSETRON HCL 4MG/2ML INJ IV PRN ×2 (15:15→16:30)
[2020-08-30] MEDS ORDERED: HYDROCODONE/ACETAMINOPHEN 5/325MG TABLET PO PRN ×2 (15:15→16:30)
[2020-08-30] MEDS ORDERED: NA PHOS,M-B/NA PHOS,DI-BA ENEMA 118ML PR PRN ×2 (15:15→16:30)
[2020-08-30] MEDS ORDERED: DIPHENHYDRAMINE 50MG/ML VIAL IV PRN ×2 (15:15→16:30)
[2020-08-30] MEDS ORDERED: LORAZEPAM 0.5MG TABLET PO PRN ×2 (15:15→16:30)
[2020-08-30] MEDS ORDERED: IPRATROPIUM/ALBUTEROL 0.5-3(2.5)MG/3ML NEB NEB PRN ×2 (15:15→16:30)
[2020-08-30] MEDS: FERROUS SULFATE 325MG TABLET PO SCH (17:00)
[2020-08-30] MEDS: TAMSULOSIN HCL 0.4MG SR CAPSULE PO SCH (17:00)
[2020-08-30] MEDS: BLOOD SUGAR DIAGNOSTIC STRIP TEST SCH ×2 (17:00→23:41)
[2020-08-30] MEDS: AMLODIPINE 5MG TABLET PO SCH (17:00)
[2020-08-30] MEDS: METFORMIN HCL 500MG TABLET PO SCH (17:00)
[2020-08-30] MEDS: SODIUM CHLORIDE 0.9% 1,000 ML IV SCH (17:45)
[2020-08-30] MEDS: INSULIN LISPRO 100 UNITS/ML SUBCUT SCH ×2 (18:14→23:42)
[2020-08-30] MEDS: MAGNESIUM/ALUMINUM HYDROXIDE/SIMETHICONE 30ML UDC PO PRN (21:30)
[2020-08-30] MEDS: FAMOTIDINE 20MG TABLET PO SCH (23:42)
[2020-08-30 23:46] VITALS: BP 103/64
[2020-08-30 23:47] VITALS: BP 103/64
[2020-08-31 04:00] VITALS: BP 119/62
[2020-08-31] MEDS: BLOOD SUGAR DIAGNOSTIC STRIP TEST SCH ×4 (06:03→21:27)
[2020-08-31] MEDS: INSULIN LISPRO 100 UNITS/ML SUBCUT SCH ×4 (07:18→21:32)
[2020-08-31 08:00] VITALS: BP 116/54
[2020-08-31] MEDS: METFORMIN HCL 500MG TABLET PO SCH ×2 (09:02→17:13)
[2020-08-31] MEDS: FERROUS SULFATE 325MG TABLET PO SCH ×3 (09:02→17:13)
[2020-08-31] MEDS: TAMSULOSIN HCL 0.4MG SR CAPSULE PO SCH (09:03)
[2020-08-31] MEDS: AMLODIPINE 5MG TABLET PO SCH (09:03)
[2020-08-31 09:58] LABS: BASOPHILS % 0.5 % (0.0-2.0); EOSINOPHILS % 1.1 % (0.0-5.0); HEMATOCRIT. 26.7 % (42.0-52.0); HEMOGLOBIN. 8.9 g/dL (14.0-18.0); LYMPHOCYTES % 22.9 % (20.0-50.0); MEAN CORPUSCULAR HEMOGLOBIN 29.5 pg (28.0-32.0); MEAN CORPUSCULAR VOLUME 88.1 fL (80.0-94.0); NEUTROPHILS % 69.5 % (40.0-76.0); PLATELET 180 x1000/uL (130-400); RED BLOOD CELL COUNT 3.03 mill/uL (4.7-6.1); RED CELL DISTRIBUTION WIDTH 15.7 % (11.6-14.6)
[2020-08-31 10:12] LABS: CHLORIDE 106 mEq/L (98-107)
[2020-08-31 10:21] LABS: T4 FREE 0.47 ng/dL (0.76-1.46)
[2020-08-31 12:00] VITALS: BP 134/62
[2020-08-31 16:00] VITALS: BP 156/54
[2020-08-31] MEDS: SODIUM CHLORIDE 0.9% 1,000 ML IV SCH ×2 (17:13→23:10)
[2020-08-31] MEDS: LEVOTHYROXINE SODIUM 75MCG TABLET PO SCH (17:13)
[2020-08-31 20:00] VITALS: BP 110/63
[2020-08-31] MEDS: MAGNESIUM/ALUMINUM HYDROXIDE/SIMETHICONE 30ML UDC PO PRN (20:04)
[2020-08-31 20:35] LABS: VITAMIN B12 SERUM 895 pg/mL (211-911)
[2020-08-31] MEDS: FAMOTIDINE 20MG TABLET PO SCH (21:26)
[2020-08-31] MEDS: DOCUSATE SODIUM 100MG CAPSULE PO PRN (21:34)
[2020-09-01] VITALS: BP 112/58
[2020-09-01 04:00] VITALS: BP 92/58
[2020-09-01] MEDS: METFORMIN HCL 500MG TABLET PO SCH ×2 (06:36→16:41)
[2020-09-01] MEDS: LEVOTHYROXINE SODIUM 75MCG TABLET PO SCH (06:36)
[2020-09-01] MEDS: FERROUS SULFATE 325MG TABLET PO SCH ×3 (06:36→16:41)
[2020-09-01] MEDS: BLOOD SUGAR DIAGNOSTIC STRIP TEST SCH ×4 (06:46→21:01)
[2020-09-01] MEDS: INSULIN LISPRO 100 UNITS/ML SUBCUT SCH ×4 (06:46→21:20)
[2020-09-01] MEDS: SODIUM CHLORIDE 0.9% 1,000 ML IV SCH ×2 (07:15→17:26)
[2020-09-01 08:00] VITALS: BP 131/51
[2020-09-01] MEDS: AMLODIPINE 5MG TABLET PO SCH (09:12)
[2020-09-01] MEDS: TAMSULOSIN HCL 0.4MG SR CAPSULE PO SCH (09:12)
[2020-09-01 12:00] VITALS: BP 115/62
[2020-09-01 16:04] VITALS: BP 146/56
[2020-09-01 20:00] VITALS: BP 106/56
[2020-09-01] MEDS: FAMOTIDINE 20MG TABLET PO SCH (21:20)
[2020-09-02] VITALS: BP 110/65
[2020-09-02 04:00] VITALS: BP 127/61
[2020-09-02] MEDS: BLOOD SUGAR DIAGNOSTIC STRIP TEST SCH ×4 (06:30→20:22)
[2020-09-02] MEDS: INSULIN LISPRO 100 UNITS/ML SUBCUT SCH ×4 (06:45→20:29)
[2020-09-02] MEDS: FERROUS SULFATE 325MG TABLET PO SCH ×3 (06:46→17:01)
[2020-09-02] MEDS: METFORMIN HCL 500MG TABLET PO SCH ×2 (06:46→17:01)
[2020-09-02] MEDS: LEVOTHYROXINE SODIUM 75MCG TABLET PO SCH (06:46)
[2020-09-02 08:00] VITALS: BP 109/48
[2020-09-02] MEDS: AMLODIPINE 5MG TABLET PO SCH (09:00)
[2020-09-02] MEDS: TAMSULOSIN HCL 0.4MG SR CAPSULE PO SCH (09:32)
[2020-09-02] MEDS: SODIUM CHLORIDE 0.9% 1,000 ML IV SCH (11:16)
[2020-09-02 12:00] VITALS: BP 107/54
[2020-09-02 16:00] VITALS: BP 106/55
[2020-09-02 20:00] VITALS: BP 115/58
[2020-09-02] MEDS: FAMOTIDINE 20MG TABLET PO SCH (20:28)
[2020-09-03] VITALS: BP 124/56
[2020-09-03 04:00] VITALS: BP 127/59
[2020-09-03] MEDS: INSULIN LISPRO 100 UNITS/ML SUBCUT SCH ×2 (06:20→12:47)
[2020-09-03] MEDS: BLOOD SUGAR DIAGNOSTIC STRIP TEST SCH ×2 (06:20→12:03)
[2020-09-03] MEDS: LEVOTHYROXINE SODIUM 75MCG TABLET PO SCH (06:20)
[2020-09-03] MEDS: METFORMIN HCL 500MG TABLET PO SCH (06:20)
[2020-09-03] MEDS: FERROUS SULFATE 325MG TABLET PO SCH ×2 (06:20→12:46)
[2020-09-03 08:00] VITALS: BP 113/57
[2020-09-03] MEDS: TAMSULOSIN HCL 0.4MG SR CAPSULE PO SCH (08:26)
[2020-09-03] MEDS: AMLODIPINE 5MG TABLET PO SCH (08:26)
[2020-09-03] MEDS: SODIUM CHLORIDE 0.9% 1,000 ML IV SCH (08:31)
[2020-09-03 12:00] VITALS: BP 152/62
[2020-09-03] MEDS: DOCUSATE SODIUM 100MG CAPSULE PO PRN (12:46)
[2020-09-03 16:00] VITALS: BP_SYST 120
[2020-09-03 16:17] VITALS: BP 152/62
[2020-09-03] MEDS ORDERED: METF-414 MT (16:55)
[2020-09-03] MEDS ORDERED: FINA5TAB3 MT (16:55)
[2020-09-03] MEDS ORDERED: MEGE40TA5 MT (16:55)
[2020-09-03] MEDS ORDERED: LEVO75TA MT (16:55)
[2020-09-03] MEDS ORDERED: LANC1COM2 MC (16:55)
[2020-09-03] MEDS ORDERED: BLOO1KIT74 TP (16:55)
[2020-09-03] MEDS ORDERED: ASPI-1497 MT (16:55)
[2020-09-03] MEDS ORDERED: FERR-71 MT (16:55)
[2020-09-03] MEDS ORDERED: TAMS-11 MT (16:55)
[2020-09-03] MEDS ORDERED: AMLO5TAB4 MT (16:55)
== END 2020-09-03 17:20 | disposition home or self-care (01) | DRG 638 ==
LOC: ER 11:14 → 5WST 16:24 → EDBEDREQ 16:26 → EDBEDREQTM 16:26 → ENRESERV 22:02
PROVIDERS: ADMIT Internal Medicine; ATTEND Internal Medicine
DX: E11.65 Type 2 diabetes mellitus with hyperglycemia (principal); E87.1 Hypo-osmolality and hyponatremia; E03.9 Hypothyroidism, unspecified; D64.9 Anemia, unspecified; F03.90 Unspecified dementia, unspecified severity, without behavioral disturbance, psychotic disturbance, mood disturbance, and anxiety; R33.9 Retention of urine, unspecified; D72.819 Decreased white blood cell count, unspecified; E78.00 Pure hypercholesterolemia, unspecified; E78.5 Hyperlipidemia, unspecified; I10 Essential (primary) hypertension; I48.91 Unspecified atrial fibrillation; N40.1 Benign prostatic hyperplasia with lower urinary tract symptoms; R33.8 Other retention of urine; Z79.890 Hormone replacement therapy; Z79.899 Other long term (current) drug therapy; Z90.49 Acquired absence of other specified parts of digestive tract; Z79.4 Long term (current) use of insulin; Z90.89 Acquired absence of other organs; R30.0 Dysuria; R79.89 Other specified abnormal findings of blood chemistry; H02.402 Unspecified ptosis of left eyelid; R14.0 Abdominal distension (gaseous)
CPT/HCPCS: 36415; 36600; 71045; 74018; 80053; 81003; 82010; 82375; 82607; 82805; 82962; 83036; 84439; 84443; 84481; 84484; 85025; 93005; 93970; 97116; 97162; 97530; 99285; J1815; J7030

== ENCOUNTER 2020-09-27 20:16 | Inpatient (IN) | payer OTHER ==
[~2020-09-27] VITALS: Ht 190.5 cm; Wt 68.5 kg
[~2020-09-27 20:16] MED LIST changes: +ASPI-1497 MT; +BLOO1KIT74 TP; +FERR-71 MT; +FINA5TAB3 MT; -HYDR12.54 PO; -INSU3INS6 SUBCUT; +LANC1COM2 MC; +LEVO75TA MT; -LISI40TA4 PO; +MEGE40TA5 MT; +METF-414 MT; -SIMVASTATIN; +TAMS-11 MT
[2020-09-27 22:31] LABS: BASOPHILS % 0.5 % (0.0-2.0); CLARITY URINE TURBID (CLEAR); COLOR URINE DARK YELLOW (YELLOW); EOSINOPHILS % 0.4 % (0.0-5.0); HEMATOCRIT. 27.3 % (42.0-52.0); HEMOGLOBIN. 9.1 g/dL (14.0-18.0); KETONES URINE NEGATIVE (NEGATIVE); LEUKOCYTE ESTERASE URINE 3+ (NEGATIVE); LYMPHOCYTES % 20.7 % (20.0-50.0); MEAN CORPUSCULAR HEMOGLOBIN 29.6 pg (28.0-32.0); MEAN CORPUSCULAR VOLUME 88.5 fL (80.0-94.0); MONOCYTES % 7.1 % (2.0-8.0); NEUTROPHILS % 71.3 % (40.0-76.0); NITRITE URINE NEGATIVE (NEGATIVE); OCCULT BLOOD URINE NEGATIVE (NEGATIVE); PH URINE >=9.0 (4.5-8.0); PLATELET 239 x1000/uL (130-400); PROTEIN URINE 3+ (NEGATIVE); RED BLOOD CELL COUNT 3.09 mill/uL (4.7-6.1); RED CELL DISTRIBUTION WIDTH 15.5 % (11.6-14.6); SPECIFIC GRAVITY URINE 1.026 (1.005-1.030)
[2020-09-27 22:37] LABS: CHLORIDE 110 mEq/L (98-107)
[2020-09-27] MEDS ORDERED: DEXTROSE 50% WATER 50ML SYRINGE IV ONE (23:00)
[2020-09-27] MEDS ORDERED: CEFTRIAXONE 1 G PREMIX 50 ML IV SCH (23:00)
[2020-09-27] MEDS ORDERED: SODIUM CHLORIDE 0.9% 500 ML IV ONE (23:15)
[2020-09-27] MEDS ORDERED: IBUPROFEN 600MG TABLET PO ONE (23:45)
[2020-09-28] VITALS (9 sets, daily range): BP systolic 113–154; BP diastolic 57–81
[2020-09-28] MEDS ORDERED: DEXTROSE 50% WATER 50ML SYRINGE IV ONE (05:15)
[2020-09-28] MEDS ORDERED: DEXTROSE 50% WATER 50ML SYRINGE IV NR (09:34)
[2020-09-28] MEDS ORDERED: TAMSULOSIN HCL 0.4MG SR CAPSULE PO SCH (13:15)
[2020-09-28] MEDS ORDERED: IPRATROPIUM/ALBUTEROL 0.5-3(2.5)MG/3ML NEB HHN PRN (13:15)
[2020-09-28] MEDS ORDERED: CLONIDINE 0.1MG TABLET PO PRN (13:15)
[2020-09-28] MEDS ORDERED: LEVOTHYROXINE SODIUM 75MCG TABLET PO SCH (13:15)
[2020-09-28] MEDS ORDERED: AMLODIPINE 5MG TABLET PO SCH (13:15)
[2020-09-28] MEDS ORDERED: HYDROCODONE/ACETAMINOPHEN 5/325MG TABLET PO PRN (13:15)
[2020-09-28] MEDS ORDERED: ONDANSETRON HCL 4MG/2ML INJ IV PRN (13:15)
[2020-09-28] MEDS: DEXT 5%/0.45% NACL 1000ML 1,000 ML IV SCH (14:26)
[2020-09-28] MEDS: ASPIRIN 81MG EC TABLET PO SCH (14:27)
[2020-09-28] MEDS: TAMSULOSIN HCL 0.4MG SR CAPSULE PO SCH (14:29)
[2020-09-28] MEDS: ENOXAPARIN 40MG/0.4ML SYR SUBCUT SCH (14:30)
[2020-09-28] MEDS: MEGESTROL ACETATE 40MG TABLET PO SCH (14:30)
[2020-09-28] MEDS: AMLODIPINE 5MG TABLET PO SCH (14:31)
[2020-09-28] MEDS: FINASTERIDE 5MG TABLET PO SCH (14:31)
[2020-09-28] MEDS: FERROUS SULFATE 325MG TABLET PO SCH ×2 (14:31→17:49)
[2020-09-28 16:38] LABS: CREATINE KINASE 282 IU/L (39-308)
[2020-09-28] MEDS: ACETAMINOPHEN 325MG TABLET PO PRN (20:14)
[2020-09-28] MEDS: BLOOD SUGAR DIAGNOSTIC STRIP TEST SCH (21:00)
[2020-09-28] MEDS ORDERED: DEXTROSE 50% WATER 50ML SYRINGE IV PRN ×2 (21:00)
[2020-09-28] MEDS: CEFTRIAXONE 1,000 MG in DEXTROSE 5% WATER 50 ML IV SCH (23:39)
[2020-09-29] VITALS (12 sets, daily range): BP systolic 118–153; BP diastolic 59–80
[2020-09-29 01:16] LABS: CREATINE KINASE 225 IU/L (39-308)
[2020-09-29] MEDS: DEXT 5%/0.45% NACL 1000ML 1,000 ML IV SCH (02:51)
[2020-09-29] MEDS: BLOOD SUGAR DIAGNOSTIC STRIP TEST SCH ×4 (06:17→21:04)
[2020-09-29 06:49] LABS: BASOPHILS % 0.8 % (0.0-2.0); EOSINOPHILS % 1.1 % (0.0-5.0); HEMATOCRIT. 24.4 % (42.0-52.0); HEMOGLOBIN. 8.3 g/dL (14.0-18.0); LYMPHOCYTES % 34.2 % (20.0-50.0); MEAN CORPUSCULAR HEMOGLOBIN 29.7 pg (28.0-32.0); MEAN CORPUSCULAR VOLUME 87.3 fL (80.0-94.0); MEAN PLATELET VOLUME 6.7 fl (7.4-10.4); MONOCYTES % 9.4 % (2.0-8.0); NEUTROPHILS % 54.5 % (40.0-76.0); PLATELET 215 x1000/uL (130-400); RED BLOOD CELL COUNT 2.79 mill/uL (4.7-6.1); RED CELL DISTRIBUTION WIDTH 15.3 % (11.6-14.6)
[2020-09-29 07:40] LABS: CHLORIDE 107 mEq/L (98-107)
[2020-09-29 07:50] LABS: LDL CHOLESTEROL 69 mg/dL (5-100)
[2020-09-29 07:52] LABS: T4 FREE 0.65 ng/dL (0.76-1.46)
[2020-09-29 07:54] LABS: HDL CHOLESTEROL 51 mg/dL (40-59)
[2020-09-29] MEDS ORDERED: LEVOTHYROXINE SODIUM 200MCG TABLET PO SCH (09:00)
[2020-09-29] MEDS: FERROUS SULFATE 325MG TABLET PO SCH ×2 (09:20→18:05)
[2020-09-29] MEDS: ASPIRIN 81MG EC TABLET PO SCH (09:20)
[2020-09-29] MEDS: TAMSULOSIN HCL 0.4MG SR CAPSULE PO SCH (09:21)
[2020-09-29] MEDS: AMLODIPINE 5MG TABLET PO SCH (09:21)
[2020-09-29] MEDS: MEGESTROL ACETATE 40MG TABLET PO SCH (09:21)
[2020-09-29] MEDS: FINASTERIDE 5MG TABLET PO SCH (09:21)
[2020-09-29] MEDS: ENOXAPARIN 40MG/0.4ML SYR SUBCUT SCH (15:04)
[2020-09-29] MEDS: ACETAMINOPHEN 325MG TABLET PO PRN (15:05)
[2020-09-29] MEDS: LEVOTHYROXINE SODIUM 100MCG TABLET PO SCH (15:05)
[2020-09-29] MEDS: INSULIN LISPRO 100 UNITS/ML SUBCUT SCH ×2 (18:06→21:00)
[2020-09-29] MEDS: MEMANTINE HCL 5MG TABLET PO SCH (21:06)
[2020-09-29] MEDS: FAMOTIDINE 20MG TABLET PO SCH (21:06)
[2020-09-29] MEDS: CEFTRIAXONE 1,000 MG in DEXTROSE 5% WATER 50 ML IV SCH (22:45)
[2020-09-30] VITALS (12 sets, daily range): BP systolic 115–183; BP diastolic 60–86
[2020-09-30 06:02] LABS: BASOPHILS % 0.9 % (0.0-2.0); EOSINOPHILS % 1.2 % (0.0-5.0); HEMATOCRIT. 24.2 % (42.0-52.0); HEMOGLOBIN. 8.3 g/dL (14.0-18.0); LYMPHOCYTES % 37.6 % (20.0-50.0); MEAN CORPUSCULAR HEMOGLOBIN 29.5 pg (28.0-32.0); MEAN CORPUSCULAR VOLUME 86.4 fL (80.0-94.0); MONOCYTES % 7.7 % (2.0-8.0); NEUTROPHILS % 52.6 % (40.0-76.0); PLATELET 223 x1000/uL (130-400); RED CELL DISTRIBUTION WIDTH 15.1 % (11.6-14.6)
[2020-09-30 06:04] LABS: CHLORIDE 104 mEq/L (98-107)
[2020-09-30] MEDS: LEVOTHYROXINE SODIUM 100MCG TABLET PO SCH (06:16)
[2020-09-30] MEDS: BLOOD SUGAR DIAGNOSTIC STRIP TEST SCH ×4 (06:27→21:06)
[2020-09-30 06:47] LABS: VITAMIN B12 SERUM 1060 pg/mL (211-911)
[2020-09-30] MEDS: INSULIN LISPRO 100 UNITS/ML SUBCUT SCH ×4 (08:51→21:04)
[2020-09-30] MEDS: MEGESTROL ACETATE 40MG TABLET PO SCH (09:00)
[2020-09-30] MEDS: AMLODIPINE 5MG TABLET PO SCH (09:00)
[2020-09-30] MEDS: MEMANTINE HCL 5MG TABLET PO SCH ×2 (09:00→21:05)
[2020-09-30] MEDS: FERROUS SULFATE 325MG TABLET PO SCH ×2 (09:00→17:30)
[2020-09-30] MEDS: FINASTERIDE 5MG TABLET PO SCH (09:00)
[2020-09-30] MEDS: ASPIRIN 81MG EC TABLET PO SCH (09:00)
[2020-09-30] MEDS: TAMSULOSIN HCL 0.4MG SR CAPSULE PO SCH (09:01)
[2020-09-30] MEDS ORDERED: METOPROLOL TARTRATE 25MG TABLET PO NR (13:30)
[2020-09-30] MEDS: ENOXAPARIN 40MG/0.4ML SYR SUBCUT SCH (15:02)
[2020-09-30] MEDS: METFORMIN HCL 500MG TABLET PO SCH (17:31)
[2020-09-30] MEDS: FAMOTIDINE 20MG TABLET PO SCH (21:05)
[2020-09-30] MEDS: METOPROLOL TARTRATE 25MG TABLET PO SCH (21:05)
[2020-09-30] MEDS: CEFTRIAXONE 1,000 MG in DEXTROSE 5% WATER 50 ML IV SCH (22:46)
[2020-10-01] VITALS (10 sets, daily range): BP systolic 116–145; BP diastolic 61–77
[2020-10-01] MEDS: LEVOTHYROXINE SODIUM 100MCG TABLET PO SCH (06:21)
[2020-10-01] MEDS: BLOOD SUGAR DIAGNOSTIC STRIP TEST SCH ×3 (07:07→17:05)
[2020-10-01] MEDS: INSULIN LISPRO 100 UNITS/ML SUBCUT SCH ×3 (08:26→17:37)
[2020-10-01] MEDS: METFORMIN HCL 500MG TABLET PO SCH ×2 (08:28→17:37)
[2020-10-01] MEDS: AMLODIPINE 5MG TABLET PO SCH (08:29)
[2020-10-01] MEDS: MEGESTROL ACETATE 40MG TABLET PO SCH (08:30)
[2020-10-01] MEDS: TAMSULOSIN HCL 0.4MG SR CAPSULE PO SCH (08:30)
[2020-10-01] MEDS: MEMANTINE HCL 5MG TABLET PO SCH (08:32)
[2020-10-01] MEDS: METOPROLOL TARTRATE 25MG TABLET PO SCH (08:33)
[2020-10-01] MEDS: ASPIRIN 81MG EC TABLET PO SCH (08:33)
[2020-10-01] MEDS: FERROUS SULFATE 325MG TABLET PO SCH ×2 (08:33→17:37)
[2020-10-01] MEDS: FINASTERIDE 5MG TABLET PO SCH (08:33)
[2020-10-01] MEDS: DOCUSATE SODIUM 100MG CAPSULE PO SCH ×2 (10:07→17:37)
[2020-10-01] MEDS: ENOXAPARIN 40MG/0.4ML SYR SUBCUT SCH (13:16)
== END 2020-10-01 21:26 | disposition home or self-care (01) | DRG 637 ==
LOC: ER 20:16 → 3WST 09-28 00:11 → ENRESERV 09-28 04:44
PROVIDERS: ADMIT Internal Medicine; ATTEND Internal Medicine
DX: E11.649 Type 2 diabetes mellitus with hypoglycemia without coma (principal); G93.41 Metabolic encephalopathy; N39.0 Urinary tract infection, site not specified; Z68.1 Body mass index [BMI] 19.9 or less, adult; F02.80 Dementia in other diseases classified elsewhere, unspecified severity, without behavioral disturbance, psychotic disturbance, mood disturbance, and anxiety; G30.9 Alzheimer's disease, unspecified; H02.402 Unspecified ptosis of left eyelid; I10 Essential (primary) hypertension; N40.1 Benign prostatic hyperplasia with lower urinary tract symptoms; R62.7 Adult failure to thrive; D64.9 Anemia, unspecified; D72.819 Decreased white blood cell count, unspecified; E03.9 Hypothyroidism, unspecified; Z91.14 Patient's other noncompliance with medication regimen; Z79.84 Long term (current) use of oral hypoglycemic drugs; Z79.890 Hormone replacement therapy; Z91.19 Patient's noncompliance with other medical treatment and regimen; Z79.899 Other long term (current) drug therapy; Z79.82 Long term (current) use of aspirin; M16.10 Unilateral primary osteoarthritis, unspecified hip; R53.1 Weakness; R33.8 Other retention of urine
CPT/HCPCS: 36415; 70551; 71045; 72170; 80048; 80053; 80061; 81003; 82140; 82550; 82607; 82962; 83036; 83880; 84439; 84443; 84484; 85025; 87077; 87186; 93005; 97116; 97162; 99291; J0696; J1650; J1815; J7060

== ENCOUNTER 2021-09-03 09:19 | Inpatient (IN) | payer OTHER ==
[~2021-09-03] VITALS: Ht 153.9 cm; Wt 66.5 kg
[~2021-09-03 09:19] MED LIST changes: +PIPERACILLIN/TAZOBACTAM 3.375G in DEXT 5% WATER 50ML IV SCH
[2021-09-03 10:13] LABS: BASOPHILS % 0.3 % (0.0-2.0); EOSINOPHILS % 0.1 % (0.0-5.0); HEMATOCRIT. 28.8 % (42.0-52.0); HEMOGLOBIN. 9.8 g/dL (14.0-18.0); LYMPHOCYTES % 12.2 % (20.0-50.0); MEAN CORPUSCULAR HEMOGLOBIN 29.9 pg (28.0-32.0); MEAN CORPUSCULAR VOLUME 88.1 fL (80.0-94.0); MEAN PLATELET VOLUME 7.1 fl (7.4-10.4); MONOCYTES % 8.8 % (2.0-8.0); NEUTROPHILS % 78.6 % (40.0-76.0); PLATELET 197 x1000/uL (130-400); RED BLOOD CELL COUNT 3.26 mill/uL (4.7-6.1); RED CELL DISTRIBUTION WIDTH 14.3 % (11.6-14.6)
[2021-09-03] MEDS ORDERED: DEXTROSE 50% WATER 50ML SYRINGE IV ONE (10:15)
[2021-09-03] MEDS ORDERED: SODIUM CHLORIDE 0.9% 500 ML IV ONE (10:15)
[2021-09-03 10:20] LABS: CHLORIDE 104 mEq/L (98-107)
[2021-09-03 10:23] LABS: ETHANOL BLOOD < 10 mg/dL
[2021-09-03 10:28] LABS: CREATINE KINASE 206 IU/L (39-308)
[2021-09-03 10:38] LABS: CLARITY URINE CLOUDY (CLEAR); COLOR URINE YELLOW (YELLOW); KETONES URINE NEGATIVE (NEGATIVE); LEUKOCYTE ESTERASE URINE 2+ (NEGATIVE); NITRITE URINE NEGATIVE (NEGATIVE); OCCULT BLOOD URINE 1+ (NEGATIVE); PH URINE 6.5 (4.5-8.0); PROTEIN URINE 1+ (NEGATIVE); SPECIFIC GRAVITY URINE 1.017 (1.005-1.030)
[2021-09-03] MEDS ORDERED: DEXT 10% WATER 1,000 ML IV ONE (10:45)
[2021-09-03 10:57] LABS: *AMPHETAMINES SCREEN URINE NEGATIVE (NEGATIVE); *BARBITURATES SCREEN URINE NEGATIVE (NEGATIVE); *BENZODIAZEPINES SCREEN URINE NEGATIVE (NEGATIVE); *COCAINE SCREEN URINE NEGATIVE (NEGATIVE)
[2021-09-03 10:58] LABS: METHADONE URINE SCREEN NEGATIVE (NEGATIVE); OPIATES URINE SCREEN NEGATIVE (NEGATIVE)
[2021-09-03 10:59] LABS: CANNABINOID URINE SCREEN PRESUMTIVE POSITIVE (NEGATIVE); PHENCYCLIDINE URINE SCREEN NEGATIVE (NEGATIVE)
[2021-09-03] MEDS ORDERED: CEFTRIAXONE 1 G PREMIX 50 ML IV ONE (11:00)
[2021-09-03 11:09] LABS: AMYLASE 459 IU/L (25-115)
[2021-09-03] MEDS ORDERED: IPRATROPIUM/ALBUTEROL 0.5-3(2.5)MG/3ML NEB NEB PRN (11:15)
[2021-09-03] MEDS ORDERED: CLONIDINE 0.1MG TABLET PO PRN (11:15)
[2021-09-03] MEDS ORDERED: ONDANSETRON HCL 4MG/2ML INJ IV PRN (11:15)
[2021-09-03] MEDS ORDERED: LORAZEPAM 0.5MG TABLET PO PRN (11:15)
[2021-09-03] MEDS ORDERED: HYDROCODONE/ACETAMINOPHEN 5/325MG TABLET PO PRN (11:15)
[2021-09-03] MEDS ORDERED: ACETAMINOPHEN 650MG SUPP PR PRN (11:15)
[2021-09-03] MEDS ORDERED: MAGNESIUM/ALUMINUM HYDROXIDE/SIMETHICONE 30ML UDC PO PRN (11:15)
[2021-09-03] MEDS: BLOOD SUGAR DIAGNOSTIC STRIP TEST SCH ×3 (11:15→23:15)
[2021-09-03] MEDS ORDERED: DOCUSATE SODIUM 100MG CAPSULE PO PRN (11:15)
[2021-09-03] MEDS ORDERED: DIPHENHYDRAMINE 50MG/ML VIAL IV PRN (11:15)
[2021-09-03] MEDS ORDERED: ACETAMINOPHEN 325MG TABLET PO PRN (11:15)
[2021-09-03] MEDS ORDERED: NA PHOS,M-B/NA PHOS,DI-BA ENEMA 118ML PR PRN (11:15)
[2021-09-03] MEDS ORDERED: GUAIFENESIN 200MG/10ML SUGAR FREE UDC PO PRN (11:15)
[2021-09-03] MEDS ORDERED: HYDRALAZINE 20MG/ML VIAL IV PRN (11:15)
[2021-09-03] MEDS: DEXT 5%/0.45% NACL 1000ML 1,000 ML IV SCH ×2 (12:00→23:27)
[2021-09-03] MEDS ORDERED: FLUCONAZOLE 100MG TABLET PO ONE (13:00)
[2021-09-03] MEDS ORDERED: FLUCONAZOLE 150MG TABLET PO NR (13:00)
[2021-09-03] MEDS ORDERED: CEFTRIAXONE 1 G PREMIX 50 ML IV SCH (13:15)
[2021-09-03] MEDS ORDERED: NALOXONE HCL 0.4MG/ML VIAL IV PRN (13:15)
[2021-09-03] MEDS ORDERED: PIPERACILLIN/TAZ 3.375G PREMIX 50 ML IV SCH (14:00)
[2021-09-03] MEDS: AMLODIPINE 5MG TABLET PO SCH (15:32)
[2021-09-03] MEDS: TAMSULOSIN HCL 0.4MG SR CAPSULE PO SCH (15:40)
[2021-09-03 16:00] VITALS: BP 119/63
[2021-09-03] MEDS: DEXTROSE 50% WATER 50ML SYRINGE IV PRN ×2 (16:10→19:45)
[2021-09-03] MEDS ORDERED: PNEUMOCOCCAL 23-VAL P-SAC VAC 0.5 ML IM ONE (19:45)
[2021-09-03 20:00] VITALS: BP 119/66
[2021-09-03] MEDS: FINASTERIDE 5MG TABLET PO SCH (21:37)
[2021-09-03] MEDS: FAMOTIDINE 20MG TABLET PO SCH (21:40)
[2021-09-03] MEDS: PIPERACILLIN/TAZOBACTAM 3.375G in DEXT 5% WATER 50ML IV SCH (23:27)
[2021-09-04] VITALS: BP 130/60
[2021-09-04 04:00] VITALS: BP 114/56
[2021-09-04] MEDS: BLOOD SUGAR DIAGNOSTIC STRIP TEST SCH ×5 (04:14→21:33)
[2021-09-04] MEDS: LEVOTHYROXINE SODIUM 200MCG TABLET PO SCH (04:15)
[2021-09-04 05:57] LABS: CHLORIDE 105 mEq/L (98-107)
[2021-09-04 06:07] LABS: LDL CHOLESTEROL 42 mg/dL (5-100); T4 FREE 1.09 ng/dL (0.76-1.46)
[2021-09-04 06:08] LABS: HDL CHOLESTEROL 65 mg/dL (40-59)
[2021-09-04 06:09] LABS: BASOPHILS % 0.4 % (0.0-2.0); EOSINOPHILS % 0.2 % (0.0-5.0); HEMATOCRIT. 28.9 % (42.0-52.0); LYMPHOCYTES % 21.4 % (20.0-50.0); MEAN CORPUSCULAR HEMOGLOBIN 30.2 pg (28.0-32.0); MEAN CORPUSCULAR VOLUME 87.5 fL (80.0-94.0); MEAN PLATELET VOLUME 7.2 fl (7.4-10.4); MONOCYTES % 10.9 % (2.0-8.0); NEUTROPHILS % 67.1 % (40.0-76.0); PLATELET 196 x1000/uL (130-400); RED BLOOD CELL COUNT 3.31 mill/uL (4.7-6.1); RED CELL DISTRIBUTION WIDTH 13.8 % (11.6-14.6)
[2021-09-04] MEDS: PIPERACILLIN/TAZOBACTAM 3.375G in DEXT 5% WATER 50ML IV SCH ×3 (06:33→21:56)
[2021-09-04 08:00] VITALS: BP 150/84
[2021-09-04] MEDS ORDERED: CEFTRIAXONE 1,000 MG in DEXTROSE 5% WATER 50 ML IV SCH (08:00)
[2021-09-04] MEDS ORDERED: PNEUMOCOCCAL 23-VAL P-SAC VAC 0.5 ML IM ONE (09:00)
[2021-09-04] MEDS ORDERED: FLUCONAZOLE 200 MG/100ML BAG 100 MG in CONTAINER,EMPTY 0 BAG IV SCH (09:00)
[2021-09-04] MEDS: ASPIRIN 81MG EC TABLET PO SCH (09:47)
[2021-09-04] MEDS: TAMSULOSIN HCL 0.4MG SR CAPSULE PO SCH (09:49)
[2021-09-04] MEDS: AMLODIPINE 5MG TABLET PO SCH (09:50)
[2021-09-04] MEDS: MEGESTROL ACETATE 40MG TABLET PO SCH (09:51)
[2021-09-04] MEDS: DEXT 5%/0.45% NACL 1000ML 1,000 ML IV SCH ×2 (09:52→20:22)
[2021-09-04] MEDS ORDERED: POTASSIUM CHLORIDE 20MEQ TABLET SR PO NR (11:00)
[2021-09-04] MEDS: FLUCONAZOLE 200 MG/100ML BAG 100 MG in CONTAINER,EMPTY 0 BAG IV SCH (11:37)
[2021-09-04] MEDS: CEFTRIAXONE 1,000 MG in DEXTROSE 5% WATER 50 ML IV SCH (11:38)
[2021-09-04 12:00] VITALS: BP 132/61
[2021-09-04 16:00] VITALS: BP 131/62
[2021-09-04 20:00] VITALS: BP 116/80
[2021-09-04] MEDS ORDERED: DEXTROSE 50% WATER 50ML SYRINGE IV PRN (21:00)
[2021-09-04] MEDS: FINASTERIDE 5MG TABLET PO SCH (21:56)
[2021-09-04] MEDS: FAMOTIDINE 20MG TABLET PO SCH (21:56)
[2021-09-04] MEDS: INSULIN LISPRO 100 UNITS/ML SUBCUT SCH (21:57)
[2021-09-05] VITALS: BP 106/60
[2021-09-05 04:00] VITALS: BP 145/60
[2021-09-05] MEDS: PIPERACILLIN/TAZOBACTAM 3.375G in DEXT 5% WATER 50ML IV SCH ×2 (06:13→15:10)
[2021-09-05] MEDS: LEVOTHYROXINE SODIUM 200MCG TABLET PO SCH (06:13)
[2021-09-05] MEDS: BLOOD SUGAR DIAGNOSTIC STRIP TEST SCH ×5 (06:22→17:17)
[2021-09-05 07:08] LABS: BASOPHILS % 0.3 % (0.0-2.0); EOSINOPHILS % 0.4 % (0.0-5.0); HEMATOCRIT. 30.4 % (42.0-52.0); HEMOGLOBIN. 10.3 g/dL (14.0-18.0); LYMPHOCYTES % 23.7 % (20.0-50.0); MEAN CORPUSCULAR HEMOGLOBIN 29.8 pg (28.0-32.0); MEAN CORPUSCULAR VOLUME 88.1 fL (80.0-94.0); MEAN PLATELET VOLUME 6.9 fl (7.4-10.4); MONOCYTES % 9.6 % (2.0-8.0); PLATELET 201 x1000/uL (130-400); RED BLOOD CELL COUNT 3.45 mill/uL (4.7-6.1); RED CELL DISTRIBUTION WIDTH 13.9 % (11.6-14.6)
[2021-09-05 07:35] LABS: CHLORIDE 106 mEq/L (98-107)
[2021-09-05] MEDS: INSULIN LISPRO 100 UNITS/ML SUBCUT SCH ×3 (07:39→17:17)
[2021-09-05 08:00] VITALS: BP 106/55
[2021-09-05] MEDS: AMLODIPINE 5MG TABLET PO SCH (08:18)
[2021-09-05] MEDS: CEFTRIAXONE 1,000 MG in DEXTROSE 5% WATER 50 ML IV SCH (10:08)
[2021-09-05] MEDS: ASPIRIN 81MG EC TABLET PO SCH (10:09)
[2021-09-05] MEDS: MEGESTROL ACETATE 40MG TABLET PO SCH (10:09)
[2021-09-05] MEDS: FLUCONAZOLE 200 MG/100ML BAG 100 MG in CONTAINER,EMPTY 0 BAG IV SCH (10:09)
[2021-09-05] MEDS: TAMSULOSIN HCL 0.4MG SR CAPSULE PO SCH (10:10)
[2021-09-05 12:00] VITALS: BP 128/68
[2021-09-05] MEDS ORDERED: LEVO500T89 MT (12:44)
[2021-09-05] MEDS ORDERED: LACTULOSE 20G/30ML UDC PO NR (12:45)
[2021-09-05 16:00] VITALS: BP 111/51
[2021-09-05] MEDS ORDERED: FERR325T23 MT (16:03)
[2021-09-05] MEDS ORDERED: AMLO5TAB4 MT (16:03)
[2021-09-05] MEDS ORDERED: LEVO250T58 MT (16:03)
[2021-09-05] MEDS ORDERED: FINA5TAB3 MT (16:03)
[2021-09-05] MEDS ORDERED: MEGE40TA5 MT (16:03)
[2021-09-05] MEDS ORDERED: TAMS-11 MT (16:03)
[2021-09-05] MEDS ORDERED: SYN200 MT (16:03)
[2021-09-05] MEDS ORDERED: ASPI-1497 MT (16:03)
[2021-09-05 17:44] VITALS: BP 111/51
[2021-09-06] MEDS ORDERED: FLUCONAZOLE 100MG TABLET PO SCH (09:00)
== END 2021-09-05 19:56 | disposition home or self-care (01) | DRG 637 ==
LOC: ER 09:39 → MICUSO 10:50 → EDBEDREQSVC 15:00 → 8WST 17:24
PROVIDERS: ADMIT Internal Medicine; ATTEND Internal Medicine
DX: E11.649 Type 2 diabetes mellitus with hypoglycemia without coma (principal); G93.41 Metabolic encephalopathy; K85.90 Acute pancreatitis without necrosis or infection, unspecified; N39.0 Urinary tract infection, site not specified; D64.9 Anemia, unspecified; E03.9 Hypothyroidism, unspecified; F02.80 Dementia in other diseases classified elsewhere, unspecified severity, without behavioral disturbance, psychotic disturbance, mood disturbance, and anxiety; G30.9 Alzheimer's disease, unspecified; I10 Essential (primary) hypertension; N40.0 Benign prostatic hyperplasia without lower urinary tract symptoms; Z20.822 Contact with and (suspected) exposure to COVID-19; M85.80 Other specified disorders of bone density and structure, unspecified site; Z79.899 Other long term (current) drug therapy; Z79.82 Long term (current) use of aspirin; Z79.84 Long term (current) use of oral hypoglycemic drugs
CPT/HCPCS: 36415; 71045; 74176; 76700; 80048; 80053; 80061; 80305; 80320; 81003; 82150; 82550; 82962; 83036; 83615; 83880; 84153; 84439; 84443; 84484; 85025; 87077; 87186; 87426; 90732; 93005; 93306; 93970; 97162; 99291; J0696; J1450; J1815; J2543; J7040; J7060; G0103; G0480